=== PATIENT | male | born 1975 | race Two or more races ===

== ENCOUNTER 2024-01-17 12:37 | Inpatient (IN) | payer OTHER ==
[~2024-01-17] VITALS: Ht 167.6 cm; Wt 83.1 kg
[~2024-01-17 12:37] MED LIST: CARV3.1240 PO; FURO40TA4 PO; TRAM50TA2 PO
[2024-01-17 13:00] VITALS: PULSE 90; RESP 22; O2SAT 100
--- NOTE | 2024-01-17 13:06 | ECG ---
[facility] Test Date: 2024-01-17 Test Time: 13:05:26 Pat Name: MARTINA STONE Department: ED Room: 0290T Gender: M [employer]: : 1975 Requested By: SMITH HOOPER Order Number: [id number] Reading MD: Danny Vaca Measurements Intervals [place] Rate: 86 P: 79 OH: 196 QRS: 65 QRSD: 125 T: 61 QT: 444 QTc: 531 Interpretive Statements Sinus rhythm Ventricular premature complex Left atrial enlargement LVH with secondary repolarization abnormality Prolonged QT interval Electronically Signed On 01-22-2024 17:01:13 PST by Danny Vaca Please click the below link to view image of tracing.
[2024-01-17] MEDS: SODIUM CHLORIDE 0.9% 1,000 ML IV ONE (13:08)
[2024-01-17 13:52] LABS: Basophils # (auto) 0 10 ^3/uL (0-0.2); Basophils % (auto) 0.4 % (0.0-2.0); Eosinophils # (auto) 0 10 ^3/uL (0-0.8); Eosinophils % (auto) 0.1 % (0.0-7.0); Lymphocytes # (auto) 0.5 10 ^3/uL (0.4-5.4); Monocytes # (auto) 0.5 10 ^3/uL (0-1.3); Nucleated Red Blood Cells % 0.1 %; White Blood Cell 8.2 10^3/uL (4.4-10.8)
[2024-01-17 13:55] LABS: Hemoglobin 14.6 g/dL (13.5-17.5); Lymphocytes % (auto) 5.5 % (10.0-50.0); Mean Corpuscular Volume 105.7 fL (80.0-100.0); Monocytes % (auto) 6.5 % (0.0-12.0); Neutrophils # (auto) 7.2 10 ^3/uL (1.6-8.6); Neutrophils % (auto) 87.5 % (37.0-80.0); Platelet Count (auto) 100 10^3/uL (140-450); Red Blood Cells 4.07 10^6/uL (4.5-5.90); Red Cell Distribution Width 13.7 % (11.8-14.3)
[2024-01-17 14:06] LABS: Chloride 105 mmol/L (98-107); Sodium 144 mmol/L (136-145)
[2024-01-17 14:07] LABS: Calcium 9.7 mg/dL (8.7-10.4); Carbon Dioxide 25 mmol/L (20-31)
[2024-01-17 14:12] LABS: Blood Alcohol < 3.0 mg/dL (<10); Glucose 102 mg/dL (74-106)
--- NOTE | 2024-01-17 14:35 | DVH ---
EXAM: CT CERVICAL WITHOUT CONTRAST INDICATION: aloc EXAM DATE: 01/17/2024 01:57 PM COMPARISON: None TECHNIQUE: Multiple axial CT images of the cervical spine were obtained using bone algorithm. Axial a nd coronal reformatting was done. Bone and soft tissue windows were reviewed. Radiation Dose Information: CT Dose: CTDI volume is 20 mGy. Dose-length product is 1967 mGy*cm FINDINGS: The cervical alignment is intact. No acute cervical spine fracture is identified. The vertebral body heights are intact. No suspicious osseous lesions are identified. Moderate degenerative changes throughout the cervical spine, most prominent at C5-C6 and C6-C7. There is no prevertebral soft tissue swelling. IMPRESSION: 1. No evidence of acute cervical spine fracture or traumatic malalignment. 2. Moderate degenerative changes throughout the cervical spine, most prominent at C5-C6 and C6-C7. 3. All CT scans at this medical facility are performed using dose modulation techniques as appropriat e to a performed exam including the following: Automated exposure control was utilized; adjustment of the MA and/or KV according to patient size; and use of iterative reconstruction technique.
--- NOTE | 2024-01-17 14:36 | DVH ---
EXAM: CT HEAD WITHOUT CONTRAST INDICATION: aloc TECHNIQUE: CT of the head without intravenous contrast. Radiation Dose Information: CT Dose: CTDI volume is 78.55 mGy. Dose-length product is 1967.36 mGy*cm The dose indicators for CT are the volume Computed Tomography (CT) Dose Index (CTDIvol) and the Dose Length Product (DLP), and are measured in units of mGy and mGy-cm, respectively. These indicators are not patient dose, but values generated from the CT scanner acquisition factors. The report includes radiation exposure data for exposures received during this examination. COMPARISON: None FINDINGS: There is no evidence of acute intracranial hemorrhage, extra-axial collection, mass effect, midline s hift, herniation or hydrocephalus. The ventricles, sulci and cisterns are age appropriate. The us-white differentiation is intact. Patchy periventricular and subcortical white matter hypoattenuation is nonspecific but may be related to small vessel ischemic disease. The visualized paranasal sinuses and mastoid air cells are clear. The surrounding soft tissues and osseous structures are unremarkable. IMPRESSION: 1. No intracranial hemorrhage. 2. Endotracheal tube in place 3. No CT findings of depressed skull fracture
--- NOTE | 2024-01-17 14:44 | ED.PDOC ---
Altered Mental Status HPI Comments 48Y M with PMHx pacemaker presents to ED via EMS for chief complaint ALOC. 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 Upon ED arrival, pt is nonverbal and only withdraws to deep pain. Pt is shivering. Pt was given Narcan by EMS but there was no effect on the patient. Unknown history but pt has pacemaker in place. Chief Complaint: ALOC Time Seen by MD: 14:30 Reviewed Notes: Medications, Allergies Allergies: Coded Allergies: NO KNOWN ALLERGIES (Unverified , 01/17/24) Information Source: Emergency Med Personnel, [facility] Medical Record Mode of Arrival: EMS Brought in by: EMS Severity: Severe Timing: Hours Duration: Since onset Prehospital treatment: Oxygen, Other Quality: Decreased Alertness Recent: None History of: None Associated Signs and Symptoms: Other Past Medical History PAST MEDICAL HISTORY: Unknown Surgical History (Other): Pacemaker or ICD insertion Family History Family History: Unknown Social History Smoker: Unknown Alcohol: Unknown Drugs: Unknown Lives In: Unknown Unable to Obtain due to: Altered Mental Status Physical Exam General Appearance: No Apparent Distress, Other (Somnolent) HEENT: PERRL/EOMI (A), Other (Dry mucous membranes) Neck: Full Range of Motion, Normal Inspection, Supple Respiratory: Lungs Clear, No Accessory Muscle Use, No Respiratory Distress, Normal Breath Sounds Cardiovascular: No Edema, No JVD, Regular Rate/Rhythm Breast Exam: Deferred Gastrointestinal: Non Tender, Soft Genitalia: Deferred Pelvic: Deferred Rectal: Deferred Extremities: Normal inspection, Normal range of motion, Non-tender, No pedal edema Neurologic: Other (Somnolent, opens eyes to painful stimulus, does not verbalize or follow commands, does move all extremities, no facial asymmetry) Cerebellar Function: Unable to Test Reflexes: NOT DONE Skin: Dry, Pallor, Other (Cool to the touch) Lymphatic: NOT DONE EKG EKG : Comments Sinus rhythm, rate 86, normal GA interval, QRS slightly prolonged at 125, QTC prolonged at 531, normal axis, LVH with secondary repolarization abnormality, lateral ST depression Was a procedure done? Was a procedure done?: No Differential Diagnosis (ALOC) Differential Diagnosis: Dehydration, Hypoglycemia, Encephalopathy, Sepsis, Seizure, Closed Head Injury, CVA, Mass Lesion, SAH, Drug Overdose, ETOH Intoxication, Heart Failure, Other (PR, among others) X-Ray, Labs, Meds, VS Vital Signs Date Time Temp Pulse Resp B/P (MAP) Pulse Ox O2 Delivery O2 Flow Rate FiO2 01/17/24 17:43 96 01/17/24 16:00 95 14 111/80 (90) 95 01/17/24 15:00 94 14 113/81 (92) 99 01/17/24 14:00 93 16 110/87 (95) 98 01/17/24 13:19 90 01/17/24 13:05 86 01/17/24 13:00 90 22 100 Non-Rebreather 15 N/A 01/17/24 13:00 94.1 90 22 96/71 (79) 100 94.1 01/17/24 12:40 96.2 86 16 95/74 (81) 100 Lab Test 01/17/24 15:39 01/17/24 13:42 Range/Units Troponin I High Sensitivity 943 *H 435 *H </=54 ng/L White Blood Count 8.2 4.4-10.8 10^3/uL Red Blood Count 4.07 L 4.5-5.90 10^6/uL Hemoglobin 14.6 13.5-17.5 g/dL Hematocrit 43.0 41.0-53.0 % Mean Corpuscular Volume 105.7 H 80.0-100.0 fL Mean Corpuscular Hemoglobin 36.0 H 28.0-32.0 pg Mean Corpuscular Hemoglobin Concent 34.0 32.0-36.0 g/dL Red Cell Distribution Width 13.7 11.8-14.3 % Platelet Count 100 L 140-450 10^3/uL Mean Platelet Volume 10.8 6.9-10.8 fL Neutrophils (%) (Auto) 87.5 H 37.0-80.0 % Lymphocytes (%) (Auto) 5.5 L 10.0-50.0 % Monocytes (%) (Auto) 6.5 0.0-12.0 % Eosinophils (%) (Auto) 0.1 0.0-7.0 % Basophils (%) (Auto) 0.4 0.0-2.0 % Neutrophils # (Auto) 7.2 1.6-8.6 10 ^3/uL Lymphocytes # (Auto) 0.5 0.4-5.4 10 ^3/uL Monocytes # (Auto) 0.5 0-1.3 10 ^3/uL Eosinophils # (Auto) 0 0-0.8 10 ^3/uL Basophils # (Auto) 0 0-0.2 10 ^3/uL Nucleated Red Blood Cells 0.1 % Sodium Level 144 136-145 mmol/L Potassium Level 5.0 3.5-5.1 mmol/L Chloride Level 105 98-107 mmol/L Carbon Dioxide Level 25 20-31 mmol/L Anion Gap 14 5-15 Blood Urea Nitrogen 20 9-23 mg/dL Creatinine 1.44 H 0.700-1.30 mg/dL Glomerular Filtration Rate Calc 61 >90 mL/min BUN/Creatinine Ratio 13.9 10.0-20.0 Serum Glucose 102 74-106 mg/dL Calcium Level 9.7 8.7-10.4 mg/dL Plasma/Serum Blood Alcohol < 3.0 <10 mg/dL Current Medications Medications (Trade) Dose Ordered Sig/Ady Route Start Time Stop Time Status Last Admin Sodium Chloride 1,000 ml @ 1,000 mls/hr Q1H ONCE IV 01/17/24 13:00 01/17/24 13:59 DC 01/17/24 13:08 PROCEDURE(s): HWOCT - HEAD WITHOUT CONTRAST REASON: aloc ORDER NUMBER(s): [id number], ACCESSION NUMBER(s): [id number] EXAM: CT HEAD WITHOUT CONTRAST INDICATION: aloc TECHNIQUE: CT of the head without intravenous contrast. Radiation Dose Information: CT Dose: CTDI volume is 78.55 mGy. Dose-length product is 1967.36 mGy*cm The dose indicators for CT are the volume Computed Tomography (CT) Dose Index (CTDIvol) and the Dose Length Product (DLP), and are measured in units of mGy and mGy-cm, respectively. These indicators are not patient dose, but values generated from the CT scanner acquisition factors. The report includes radiation exposure data for exposures received during this examination. COMPARISON: None FINDINGS: There is no evidence of acute intracranial hemorrhage, extra-axial collection, mass effect, midline shift, herniation or hydrocephalus. The ventricles, sulci and cisterns are age appropriate. The us-white differentiation is intact. Patchy periventricular and subcortical white matter hypoattenuation is nonspecific but may be related to small vessel ischemic disease. The visualized paranasal sinuses and mastoid air cells are clear. The surrounding soft tissues and osseous structures are unremarkable. IMPRESSION: 1. No intracranial hemorrhage. 2. Endotracheal tube in place 3. No CT findings of depressed skull fracture EDURE(s): CS2 - CERVICAL WITHOUT CONTRAST REASON: al ORDER NUMBER(s): [id number], ACCESSION NUMBER(s): [id number] EXAM: CT CERVICAL WITHOUT CONTRAST INDICATION: aloc EXAM DATE: 01/17/2024 01:57 PM COMPARISON: None TECHNIQUE: Multiple axial CT images of the cervical spine were obtained using bone algorithm. Axial and coronal reformatting was done. Bone and soft tissue windows were reviewed. Radiation Dose Information: CT Dose: CTDI volume is 20 mGy. Dose-length product is 1967 mGy*cm FINDINGS: The cervical alignment is intact. No acute cervical spine fracture is id entified. The vertebral body heights are intact. No suspicious osseous lesions are identified. Moderate degenerative changes throughout the cervical spine, most prominent at C5-C6 and C6-C7. There is no prevertebral soft tissue swelling. IMPRESSION: 1. No evidence of acute cervical spine fracture or traumatic malalignment. 2. Moderate degenerative changes throughout the cervical spine, most prominent at C5-C6 and C6-C7. 3. All CT scans at this medical facility are performed using dose modulation que hniques as appropriate to a performed exam including the following: Automated exposure control was utilized; adjustment of the MA and/or KV according to patient size; and use of iterative reconstruction technique. X-Ray, Labs, Meds, VS Comment 48-year-old male with unknown past medical history brought in by EMS after being found with altered mental status. Vitals remarkable for hypothermia Exam remarkable for somnolence, moves all extremities, does not follow commands or answer questions EKG sinus rhythm, lateral ST depression Head CT unremarkable CT C-spine unremarkable Chest x-ray unremarkable CBC, basic metabolic panel and serum alcohol level remarkable for creatinine 1.44, no other abnormalities of acute significance Serial troponins 435 and 943 BNP, UA, urine drug screen pending Patient treated with the following in the ED: 1 L 0.9 normal saline IV bolus, aspirin 325 mg p.o., nitro Dur 1/2 inch to chest wall Plan is to admit the patient for Cardiology and Neurology evaluation Time of 1ST Reevaluation: 15:00 Reevaluation 1ST: Unchanged Time of 2ND Reevaluation: 18:03 Reevaluation 2ND: Unchanged Patient Education/Counseling: Pt Unresponsive Family Education/Counseling: No Family Present Departure 1 Departure Time of Disposition: 18:03 Impression: Primary Impression: Non-STEMI (non-ST elevated myocardial infarction) Additional Impression: Encephalopathy Qualified Codes: G93.40 - Encephalopathy, unspecified Disposition: ADMITTED INPATIENT Admit to: [facility] Condition: Serious Critical Care Note Critical Care Time?: Yes (35 min-critical care time only) Critical care comment: Critical care time including multiple bedside re-evaluations, review of laboratory and imaging studies, and discussion of the case with the admitting provider. Patient is high risk for neurologic and/or hemodynamic decompensation. Stability Stability form required: No Heart Score Heart Score: Heart Score Response (Comments) Value History N/A 0 EKG N/A 0 Age N/A 0 Risk Factors N/A 0 Troponin N/A 0 Total 0 I personally scribed for SMITH ROBERT MD ([facility]) on 01/17/24 at 14:44. Electronically submitted by Karla Rich ([employer]). I personally scribed for SMITH ROBERT MD ([facility]) on 01/17/24 at 14:51. Electronically submitted by Karla Rich ([employer]). SMITH ROBERT MD Jan 17, 2024 14:44
[2024-01-17 14:57] LABS: Anion Gap 14 (5-15); BUN/Creatinine Ratio 13.9 (10.0-20.0); Blood Urea Nitrogen 20 mg/dL (9-23)
[2024-01-17] MEDS: ASPirin 325 MG TAB PO ONE (18:15)
[2024-01-17] MEDS: NITROGLYCERIN 2% OINT 1GM PKG TD ONE (18:22)
[2024-01-17 19:25] VITALS: PULSE 98; RESP 31; O2SAT 96
[2024-01-17 21:07] LABS: Urine Bacteria None Seen /hpf (None Seen)
[2024-01-17] MEDS ORDERED: MORPHINE SULFATE INJ 2 MG/ml SYRG IV PRN (21:15)
[2024-01-17] MEDS: ENOXAPARIN SOD 100 MG/1 ML SYRINGE SC ONE (21:15)
[2024-01-17] MEDS ORDERED: NITROGLYCERIN 0.4 MG SL TAB SL PRN (21:15)
[2024-01-17] MEDS ORDERED: ACETAMINOPHEN 325 MG TAB PO PRN (21:15)
[2024-01-17 21:25] LABS: Urine Blood 3+ /uL (Negative); Urine Clarity Turbid (Clear); Urine Color Light-Orange (Yellow); Urine Mucus FEW (None Seen); Urine Protein, UAD 2+ (Negative); Urine Specific Gravity 1.018 (1.001-1.035); Urine Urobilinogen Normal (Negative); Urine WBC 2 /hpf (0 - 3); Urine pH 5.5 (5.0-9.0)
[2024-01-17 21:30] LABS: Amphetamine Screen, Urine Neg (NEGATIVE); Barbiturate Scree,Urine Neg (NEGATIVE); Benzodiazephine Screen, Urine Neg (NEGATIVE); Cannabinoid Screen, Urine Neg (NEGATIVE); Cocaine Screen, Urine Neg (NEGATIVE); Opiate Scree,Urine Neg (NEGATIVE); Phencyclidine Screen, Urine Neg (NEGATIVE)
[2024-01-17] MEDS ORDERED: ENOXAPARIN SOD 100 MG/1 ML SYRINGE SC ONE (21:45)
--- NOTE | 2024-01-17 22:17 | DVH ---
EXAM: XY CHEST XRAY 1 VIEW CLINICAL HISTORY: sob, chf TECHNIQUE: Single AP view of the chest WID: COMPARISON: None FINDINGS: Lines and tubes: There is a left-sided single lead pacemaker with the tip projecting over the right v entricle. Chest: Cardiomegaly with mild central pulmonary vascular congestion. No pleural effusion, pneumothorax, or consolidation. The osseous structures are grossly intact. IMPRESSION: Mild cardiomegaly with very mild central pulmonary vascular congestion
[2024-01-17] MEDS: CARVEDILOL 3.125 MG TAB PO SCH (22:38)
[2024-01-17] MEDS: ATORVASTATIN 20 MG TAB PO SCH (22:38)
[2024-01-17 22:55] LABS: Lactic Acid w/Reflex 2.5 mmol/L (0.4-2.0)
[2024-01-17] MEDS: FUROSEMIDE 40 MG/4 ML VIAL IV ONE (23:50)
[2024-01-18] MEDS: TEMAZEPAM 15 MG CAP PO PRN (03:46)
[2024-01-18 04:12] LABS: Eosinophils # (auto) 0 10 ^3/uL (0-0.8); Hemoglobin 15.3 g/dL (13.5-17.5); Lymphocytes # (auto) 0.5 10 ^3/uL (0.4-5.4); Monocytes # (auto) 0.9 10 ^3/uL (0-1.3)
[2024-01-18 04:31] LABS: Calcium 9.2 mg/dL (8.7-10.4); Chloride 107 mmol/L (98-107); Potassium 4.8 mmol/L (3.5-5.1); Sodium 142 mmol/L (136-145)
[2024-01-18 04:32] LABS: Anion Gap 15 (5-15); Carbon Dioxide 20 mmol/L (20-31)
[2024-01-18 04:33] LABS: Basophils # (auto) 0.1 10 ^3/uL (0-0.2); Basophils % (auto) 0.4 % (0.0-2.0); Hematocrit 46.1 % (41.0-53.0); Lymphocytes % (auto) 3.3 % (10.0-50.0); Mean Corpuscular Hemoglobin 34.9 pg (28.0-32.0); Mean Corpuscular Hgb Conc. 33.3 g/dL (32.0-36.0); Mean Corpuscular Volume 105.1 fL (80.0-100.0); Monocytes % (auto) 6.2 % (0.0-12.0); Neutrophils # (auto) 13.3 10 ^3/uL (1.6-8.6); Neutrophils % (auto) 90.1 % (37.0-80.0); Platelet Count (auto) 85 10^3/uL (140-450); Red Blood Cells 4.39 10^6/uL (4.5-5.90); Red Cell Distribution Width 13.9 % (11.8-14.3); White Blood Cell 14.7 10^3/uL (4.4-10.8)
[2024-01-18 04:37] LABS: BUN/Creatinine Ratio 11.5 (10.0-20.0); Glucose 111 mg/dL (74-106)
[2024-01-18 04:42] LABS: Blood Urea Nitrogen 30 mg/dL (9-23)
--- NOTE | 2024-01-18 05:30 | DVHHP2 ---
History of Present Illness Reason for Visit: Altered mental status History of Present Illness 48-year-old presents for evaluation of altered mental status. 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 Patient was found confused and nonverbal. Patient currently lethargic and mumbles words. Denies chest pain or shortness for breath. Past Medical History Congestive heart failure, hypertension Past Surgical History Pacemaker Family History Noncontributory Smoke: No ALCOHOL: heavy Drugs: None Lives: Alone Review of Systems Review of Systems Review of systems are limited due to the patient's altered mental status. Allergies: Coded Allergies: NO KNOWN ALLERGIES (Unverified , 01/17/24) Medications Current Medications Medications Dose Ordered Sig/Ady Route Start Time Stop Time Status Last Admin Dose Admin Aspirin 162 mg DAILY PO 01/18/24 10:00 Atorvastatin Calcium 10 mg HS PO 01/17/24 22:00 01/17/24 22:38 10 MG Furosemide 20 mg BIDD IV 01/18/24 06:00 Carvedilol 3.125 mg Q12HR PO 01/17/24 22:00 01/17/24 22:38 3.125 MG Temazepam 15 mg QHSP PRN PO 01/17/24 21:15 01/18/24 03:46 15 MG Ondansetron HCl 4 mg Q4HP PRN IV 01/17/24 21:15 Enoxaparin Sodium 40 mg DAILY SC 01/18/24 10:00 UNV Acetaminophen 650 mg Q6HP PRN PO 01/17/24 21:15 Nitroglycerin 0.4 mg Q5MINP PRN SL 01/17/24 21:15 Morphine Sulfate 2 mg Q30M PRN IV 01/17/24 21:15 Exam Vital Signs Vital Signs Date Time Temp Pulse Resp B/P (MAP) Pulse Ox O2 Delivery O2 Flow Rate FiO2 01/18/24 04:00 80 01/18/24 04:00 114/83 (93) 99 01/18/24 02:00 27 01/17/24 19:25 97.9 97.9 01/17/24 19:25 Nasal Cannula* 3 32 Exam Gen: 48-year-old male in mild distress, lethargic Skin: Warm, dry, normal color and texture, no rash. HEENT: Normocephalic atraumatic, mucous membranes moist and pink. Neck: Cervical and supraclavicular nodes normal without enlargement, trachea is midline, thyroid gland is normal without masses. Pulmonary: Clear to auscultation and percussion bilaterally. Cardiac: Regular rate and rhythm. No murmur Abdomen: Soft, nontender, nondistended, bowel sounds present all 4 quadrants, no guarding, no rigidity, no organomegaly. Extremities: No cyanosis, clubbing, no edema Neuro: Cranial nerves II through XII grossly intact, normal affect and speech, no focal motor deficits. Labs/Xrays ORDERING PHYSICIAN: SMITH ROBERT MD PROCEDURE(s): HWOCT - HEAD WITHOUT CONTRAST REASON: aloc ORDER NUMBER(s): [id number], ACCESSION NUMBER(s): [id number] EXAM: CT HEAD WITHOUT CONTRAST INDICATION: aloc TECHNIQUE: CT of the head without intravenous contrast. Radiation Dose Information: CT Dose: CTDI volume is 78.55 mGy. Dose-length product is 1967.36 mGy*cm The dose indicators for CT are the volume Computed Tomography (CT) Dose Index (CTDIvol) and the Dose Length Product (DLP), and are measured in units of mGy and mGy-cm, respectively. These indicators are not patient dose, but values generated from the CT scanner acquisition factors. The report includes radiation exposure data for exposures received during this examination. COMPARISON: None FINDINGS: There is no evidence of acute intracranial hemorrhage, extra-axial collection, mass effect, midline shift, herniation or hydrocephalus. The ventricles, sulci and cisterns are age appropriate. The us-white differentiation is intact. Patchy periventricular and subcortical white matter hypoattenuation is nonspecific but may be related to small vessel ischemic disease. The visualized paranasal sinuses and mastoid air cells are clear. The surrounding soft tissues and osseous structures are unremarkable. IMPRESSION: 1. No intracranial hemorrhage. 2. Endotracheal tube in place 3. No CT findings of depressed skull fracture RING PHYSICIAN: ANSHUL PACECNJason PROCEDURE(s): CXR1 - CHEST XRAY 1 VIEW REASON: sob, chf ORDER NUMBER(s): [id number], ACCESSION NUMBER(s): [id number] EXAM: XY CHEST XRAY 1 VIEW CLINICAL HISTORY: sob, chf TECHNIQUE: Single AP view of the chest WID: COMPARISON: None FINDINGS: Lines and tubes: There is a left-sided single lead pacemaker with the tip projecting over the right ventricle. Chest: Cardiomegaly with mild central pulmonary vascular congestion. No pleural effusion, pneumothorax, or consolidation. The osseous structures are grossly intact. IMPRESSION: Mild cardiomegaly with very mild central pulmonary vascular congestion ATED BY: GUY LEÓN MD DICTATED DATE/TIME: 01/17/246 Labs Test 01/18/24 03:55 01/17/24 23:40 01/17/24 21:37 01/17/24 20:52 Range/Units White Blood Count 14.7 #H 4.4-10.8 10^3/uL Red Blood Count 4.39 L 4.5-5.90 10^6/uL Hemoglobin 15.3 13.5-17.5 g/dL Hematocrit 46.1 41.0-53.0 % Mean Corpuscular Volume 105.1 H 80.0-100.0 fL Mean Corpuscular Hemoglobin 34.9 H 28.0-32.0 pg Mean Corpuscular Hemoglobin Concent 33.3 32.0-36.0 g/dL Red Cell Distribution Width 13.9 11.8-14.3 % Platelet Count 85 L 140-450 10^3/uL Mean Platelet Volume 11.4 H 6.9-10.8 fL Neutrophils (%) (Auto) 90.1 H 37.0-80.0 % Lymphocytes (%) (Auto) 3.3 L 10.0-50.0 % Monocytes (%) (Auto) 6.2 0.0-12.0 % Eosinophils (%) (Auto) 0.0 0.0-7.0 % Basophils (%) (Auto) 0.4 0.0-2.0 % Neutrophils # (Auto) 13.3 H 1.6-8.6 10 ^3/uL Lymphocytes # (Auto) 0.5 0.4-5.4 10 ^3/uL Monocytes # (Auto) 0.9 0-1.3 10 ^3/uL Eosinophils # (Auto) 0 0-0.8 10 ^3/uL Basophils # (Auto) 0.1 0-0.2 10 ^3/uL Nucleated Red Blood Cells 0.0 % Sodium Level 142 136-145 mmol/L Potassium Level 4.8 3.5-5.1 mmol/L Chloride Level 107 98-107 mmol/L Carbon Dioxide Level 20 20-31 mmol/L Anion Gap 15 5-15 Blood Urea Nitrogen 30 #H 9-23 mg/dL Creatinine 2.62 H 0.700-1.30 mg/dL Glomerular Filtration Rate Calc 30 >90 mL/min BUN/Creatinine Ratio 11.5 10.0-20.0 Serum Glucose 111 H 74-106 mg/dL Calcium Level 9.2 8.7-10.4 mg/dL Lactic Acid Level 2.0 0.4-2.0 mmol/L Blood Gas Specimen Type Arterial Blood Gas Sample Site Right radial Blood Gas Patient Temperature 37.0 Arterial Blood Date Drawn [id number] Arterial Blood pH 7.494 H 7.350-7.450 Arterial Blood Partial Pressure CO2 25.7 L 35.0-48.0 mmHg Arterial Blood Partial Pressure O2 84.3 83.0-108.0 mmHg Arterial Blood HCO3 19.3 L 21.0-28.0 mmol/L Arterial Blood Oxygen Saturation 96.7 94.0-98.0 % Arterial Blood Base Excess -2.0 -2.0-3.0 mmol/L Arterial Blood Oxyhemoglobin 90.7 L 94.0-98.0 % Arterial Blood Carboxyhemoglobin 5.9 H 0.5-1.5 % Arterial Blood Methemoglobin 0.3 0.0-1.5 % Jame Test Yes Blood Gas Total Hemoglobin 15.80 13.5-17.5 g/dL Blood Gas Liter Flow 2.00 Blood Gas Modality Nasal cannula Blood Gas Spontaneous Rate 28 FiO2 % 28.0 Urine Color Light-orange Yellow Urine Clarity Turbid H Clear Urine pH 5.5 5.0-9.0 Urine Specific [place] 1.018 1.001-1.035 Urine Protein 2+ H Negative Urine Ketones Trace Negative Urine Blood 3+ H Negative /uL Urine Nitrite Negative Negative Urine Bilirubin Negative Negative Urine Urobilinogen Normal Negative mg/dL Urine Leukocyte Esterase Negative Negative /uL Urine RBC <1 0 - 3 /hpf Urine WBC 2 0 - 3 /hpf Urine Squamous Epithelial Cells None seen <5 /hpf Urine Bacteria None seen None Seen /hpf Urine Mucus Few None Seen Urine Glucose Normal Normal mg/dL Urine Opiates Screen Neg NEGATIVE Urine Fentanyl Screen Neg NEGATIVE Urine Barbiturates Screen Neg NEGATIVE Urine Phencyclidine Screen Neg NEGATIVE Urine Amphetamines Screen Neg NEGATIVE Urine Benzodiazepines Screen Neg NEGATIVE Urine Cocaine Screen Neg NEGATIVE Urine Cannabinoids Screen Neg NEGATIVE Test 01/17/24 15:39 01/17/24 13:42 Range/Units Troponin I High Sensitivity 943 *H </=54 ng/L B-Type Natriuretic Peptide 2677.09 0-100 pg/mL Plasma/Serum Blood Alcohol < 3.0 <10 mg/dL Assessment/Plan Assessment/Plan Acute encephalopathy NSTEMI Congestive heart failure Acute kidney injury Plan Admit the patient to [facility] to the hospitalist Cardiology consultation Resume home medications Rocephin CMP/CK pending Continue treatment per orders. Plan discussed with: Other My Orders Orders - ANSHUL PACE Procedure Category Date Status Time Chest Xray 1 View XY 01/17/24 Resulted 21:12 Abg W/ Co-Ox RT 01/17/24 Logged 21:12 Aspirin Tablet PHA 01/18/24 In Process 10:00 Atorvastatin (Lipitor) PHA 01/17/24 In Process 22:00 Furosemide Injection PHA 01/18/24 In Process (Lasix Injection) 06:00 Carvedilol Tablet PHA 01/17/24 In Process (Coreg Tablet) 22:00 * Cardiology Consult CONS 01/17/24 Transmitted 21:12 Admit ADMIT 01/17/24 Transmitted 21:12 Temazepam (Restoril) PHA 01/17/24 In Process 21:15 Ondansetron Hcl PHA 01/17/24 In Process (Zofran) 21:15 Enoxaparin Sodium PHA 01/18/24 Pending (Lovenox) 10:00 Cardiac DIET 01/18/24 Transmitted Diet-2gna,Lofat,Lochol Breakfast Echo 2d Mode Cardiac US 01/17/24 Logged DOP 21:12 Condition: Serious [facility] 01/17/24 In Process 21:12 Acetaminophen Tablet PHA 01/17/24 In Process (Tylenol Tablet) 21:15 Bedrest With Bathroom [facility] 01/17/24 In Process Privileg 21:12 Nitroglycerin PHA 01/17/24 In Process Sublingual (Ntrostat 21:15 Morphine Sulfate PHA 01/17/24 In Process Injection 21:15 Stat Ekg For Chest [facility] 01/17/24 In Process Pain 21:12 Notify Md Of Changes [facility] 01/17/24 In Process From Base 21:12 Glove Operator For [facility] 01/17/24 In Process 24 Hours 21:12 Emergency Dysrhythmia [facility] 01/17/24 In Process Protocol 21:12 Rhythm Strips Once [facility] 01/17/24 In Process Every Shift 21:12 Oxygen By Nasal RT 01/17/24 Transmitted Cannula 21:12 Enoxaparin Sodium [facility] 01/17/24 Pending (Lovenox) 21:45 Transfer Orders XFER 01/17/24 Transmitted 23:19 Ceftriaxone Ivpb PHA 01/18/24 Transmitted Rocephin 09:00 Date of Service: Jan 17, 2024 Billing Provider: ANSHUL PACE Common Visit Codes: [id number] CARE 30-74 MIN ANSHUL PACE Jan 18, 2024 05:30
[2024-01-18] MEDS: FUROSEMIDE 20 MG/2 ML VIAL IV SCH (06:00)
[2024-01-18 06:15] LABS: Albumin 4.1 g/dL (3.2-4.8); Bilirubin, Direct 0.4 mg/dL (<0.3); Total Protein 7.3 g/dL (5.7-8.2)
[2024-01-18 08:00] VITALS: PULSE 81
[2024-01-18] MEDS: ASPirin 81 mg TAB PO SCH (09:47)
[2024-01-18] MEDS: cefTRIAXone 1GM/50ML D5W 50 ML IV SCH (09:47)
[2024-01-18] MEDS ORDERED: ENOXAPARIN SOD 40 MG/0.4 ML SYRINGE SC SCH (10:00)
--- NOTE | 2024-01-18 11:11 | DVHINCON2 ---
Date Seen: Jan 18, 2024 Referring Physician MIGUEL Schulte Reason for Consultation CHF History of Present Illness This is a Romansh-speaking mostly 48-year-old male who presented to the emergency room via EMS with a chief complaint of ALOC. At time of assessment, the patient was found A&O x 2. Information obtained from records and primary RN. 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 St ates he lives within this area with his friend. Reports undergoing an automatic implantable cardioverted defibrillator procedure in the [facility] approximately a year ago. He underwent a 12-lead electrocardiogram revealing a sinus rhythm with intermittent premature ventricular contractions and a prolonged QTC at 531 ms. Transthoracic echocardiogram at bedside reveals a dilated cardiomyopathy with poor left ventricular ejection fraction. Significant medical history includes unspecified dilated cardiomyopathy, congestive heart failure, status post single-lead AICD placement ([facility]) in 2022, and alcohol use including daily beer consumption. Past Medical History Past medical history reviewed. No other significant than mentioned above. Past Surgical History Status post single-lead AICD placement ([facility]) in 2022 Family History Unable to obtain family history at this time. Social History Admits to daily alcohol consumption, three beers per day. Denies use of illicit drugs or tobacco. Allergies: Coded Allergies: NO KNOWN ALLERGIES (Unverified , 01/17/24) Home Meds Home medications reviewed. Current Medications Current Medications Medications (Trade) Dose Ordered Sig/Ady Route PRN Reason Start Time Stop Time Status Last Admin Aspirin 162 mg DAILY PO 01/18/24 10:00 01/18/24 09:47 Atorvastatin Calcium (Lipitor) 10 mg HS PO 01/17/24 22:00 01/17/24 22:38 Furosemide (Lasix Injection) 20 mg BIDD IV 01/18/24 06:00 Carvedilol (Coreg Tablet) 3.125 mg Q12HR PO 01/17/24 22:00 01/18/24 09:48 Temazepam (Restoril) 15 mg QHSP PRN PO FOR INSOMNIA 01/17/24 21:15 01/18/24 03:46 Ondansetron HCl (Zofran) 4 mg Q4HP PRN IV NAUSEA / VOMITING 01/17/24 21:15 Enoxaparin Sodium (Lovenox) 40 mg DAILY SC 01/18/24 10:00 UNV Acetaminophen (Tylenol Tablet) 650 mg Q6HP PRN PO PAIN SCALE 1-3 OR TEMP>100.4 01/17/24 21:15 Nitroglycerin (Ntrostat Sublingual) 0.4 mg Q5MINP PRN SL FOR CHEST PAIN 01/17/24 21:15 Morphine Sulfate 2 mg Q30M PRN IV FOR CHEST PAIN 01/17/24 21:15 Ceftriaxone Sodium 50 ml @ 100 mls/hr DAILY@09 IV 01/18/24 09:00 01/18/24 09:47 Review of Systems Constitutional: No symptom reported Ears, Nose, & Throat: No symptom reported Eyes: No symptom reported Neurological: ALOC Pulmonary/Respiratory: No symptom reported Cardiovascular: No symptom reported Gastrointestinal: No symptom reported Genitourinary: No symptom reported Musculoskeletal: No symptom reported Skin: No symptom reported Psychiatric: No symptom reported Endocrine: No symptom reported Hemotologic/Lymphatic: No symptom reported Vital Signs Vital Signs Date Time Temp Pulse Resp B/P (MAP) Pulse Ox O2 Delivery O2 Flow Rate FiO2 01/18/24 09:48 88 124/90 01/18/24 05:37 Room Air* 0 21 01/18/24 04:00 99 01/18/24 02:00 27 01/17/24 19:25 97.9 97.9 Physical Exam General Appearance: ALOC. Unkept. Mild acute SOB Head Exam: Normal inspection Neck Exam: Normal inspection. Non-tender. Normal alignment Pulmonary/Respiratory: Chest non-tender. Crackles to bilateral breath sounds Cardiovascular/Chest: Regular rate and rhythm. S1, S2. SR with PVCs and QTC at 531 ms. Peripheral Pulses: 2+ Radial (R). 2+ Radial (L). 2+ Pedal (R). 2+ Pedal (L) Abdominal Exam: Normal bowel sounds. Soft. Nontender. No hepatospenomegaly. No masses Ankle Exam: Negative ankle edema Lower extremities: Negative lower extremity edema Urology: Testicular edema present Neuro/Mental Status: A&O x2. ALOC Thoughts/Psych: ALOC, poor historian Appearance: Mild acute distress Skin Exam: Normal inspection. Normal color. Warm. Dry Labs/Diagnostic Data Labs Test 01/18/24 03:55 01/17/24 23:40 01/17/24 21:37 01/17/24 20:52 Range/Units White Blood Count 14.7 #H 4.4-10.8 10^3/uL Red Blood Count 4.39 L 4.5-5.90 10^6/uL Hemoglobin 15.3 13.5-17.5 g/dL Hematocrit 46.1 41.0-53.0 % Mean Corpuscular Volume 105.1 H 80.0-100.0 fL Mean Corpuscular Hemoglobin 34.9 H 28.0-32.0 pg Mean Corpuscular Hemoglobin Concent 33.3 32.0-36.0 g/dL Red Cell Distribution Width 13.9 11.8-14.3 % Platelet Count 85 L 140-450 10^3/uL Mean Platelet Volume 11.4 H 6.9-10.8 fL Neutrophils (%) (Auto) 90.1 H 37.0-80.0 % Lymphocytes (%) (Auto) 3.3 L 10.0-50.0 % Monocytes (%) (Auto) 6.2 0.0-12.0 % Eosinophils (%) (Auto) 0.0 0.0-7.0 % Basophils (%) (Auto) 0.4 0.0-2.0 % Neutrophils # (Auto) 13.3 H 1.6-8.6 10 ^3/uL Lymphocytes # (Auto) 0.5 0.4-5.4 10 ^3/uL Monocytes # (Auto) 0.9 0-1.3 10 ^3/uL Eosinophils # (Auto) 0 0-0.8 10 ^3/uL Basophils # (Auto) 0.1 0-0.2 10 ^3/uL Nucleated Red Blood Cells 0.0 % Sodium Level 142 136-145 mmol/L Potassium Level 4.8 3.5-5.1 mmol/L Chloride Level 107 98-107 mmol/L Carbon Dioxide Level 20 20-31 mmol/L Anion Gap 15 5-15 Blood Urea Nitrogen 30 #H 9-23 mg/dL Creatinine 2.62 H 0.700-1.30 mg/dL Glomerular Filtration Rate Calc 30 >90 mL/min BUN/Creatinine Ratio 11.5 10.0-20.0 Serum Glucose 111 H 74-106 mg/dL Calcium Level 9.2 8.7-10.4 mg/dL Total Bilirubin 1.0 0.2-1.0 mg/dL Direct Bilirubin 0.4 H <0.3 mg/dL Aspartate Amino Transferase (AST) 1081 H 13-40 U/L Alanine Aminotransferase (ALT) 184 H 7-40 U/L Alkaline Phosphatase 52 46-116 U/L Creatine Kinase 73101 H 46-171 U/L Total Protein 7.3 5.7-8.2 g/dL Albumin 4.1 3.2-4.8 g/dL Lactic Acid Level 2.0 0.4-2.0 mmol/L Blood Gas Specimen Type Arterial Blood Gas Sample Site Right radial Blood Gas Patient Temperature 37.0 Arterial Blood Date Drawn [id number] Arterial Blood pH 7.494 H 7.350-7.450 Arterial Blood Partial Pressure CO2 25.7 L 35.0-48.0 mmHg Arterial Blood Partial Pressure O2 84.3 83.0-108.0 mmHg Arterial Blood HCO3 19.3 L 21.0-28.0 mmol/L Arterial Blood Oxygen Saturation 96.7 94.0-98.0 % Arterial Blood Base Excess -2.0 -2.0-3.0 mmol/L Arterial Blood Oxyhemoglobin 90.7 L 94.0-98.0 % Arterial Blood Carboxyhemoglobin 5.9 H 0.5-1.5 % Arterial Blood Methemoglobin 0.3 0.0-1.5 % Jame Test Yes Blood Gas Total Hemoglobin 15.80 13.5-17.5 g/dL Blood Gas Liter Flow 2.00 Blood Gas Modality Nasal cannula Blood Gas Spontaneous Rate 28 FiO2 % 28.0 Urine Color Light-orange Yellow Urine Clarity Turbid H Clear Urine pH 5.5 5.0-9.0 Urine Specific [place] 1.018 1.001-1.035 Urine Protein 2+ H Negative Urine Ketones Trace Negative Urine Blood 3+ H Negative /uL Urine Nitrite Negative Negative Urine Bilirubin Negative Negative Urine Urobilinogen Normal Negative mg/dL Urine Leukocyte Esterase Negative Negative /uL Urine RBC <1 0 - 3 /hpf Urine WBC 2 0 - 3 /hpf Urine Squamous Epithelial Cells None seen <5 /hpf Urine Bacteria None seen None Seen /hpf Urine Mucus Few None Seen Urine Glucose Normal Normal mg/dL Urine Opiates Screen Neg NEGATIVE Urine Fentanyl Screen Neg NEGATIVE Urine Barbiturates Screen Neg NEGATIVE Urine Phencyclidine Screen Neg NEGATIVE Urine Amphetamines Screen Neg NEGATIVE Urine Benzodiazepines Screen Neg NEGATIVE Urine Cocaine Screen Neg NEGATIVE Urine Cannabinoids Screen Neg NEGATIVE Test 01/17/24 15:39 01/17/24 13:42 Range/Units Troponin I High Sensitivity 943 *H </=54 ng/L B-Type Natriuretic Peptide 2677.09 0-100 pg/mL Plasma/Serum Blood Alcohol < 3.0 <10 mg/dL Assessment Acute on chronic decompensated HFrEF, NYHA Class IV Unspecified dilated cardiomyopathy with an EF of 10% Leukocytosis with questionable sepsis/rhabdomyolysis NSTEMI, likely type 2 secondary to above Presence of single-lead AICD ([facility] 2022) Acute kidney injury Thrombocytopenia Hematuria Elevated LFTs Alcoholism Plan/Recommendation We will continue the following plan/recommendations (Dr. Dangelo): * Echocardiogram to evaluate cardiac function * Preload and afterload reduction. Initiate dobutamine drip * Strict I&Os. Daily weight. Maintain fluid restriction * Initiate GDMT for CHF when appropriate * Hold given ROBERTO and inotropic agent ensuing * Discontinue therapeutic Lovenox given thrombocytopenia * Nephrology consult and recommendations * DVT/VTE prophylaxis: SCDs Thank you for allowing us to participate in this patient's care. Please call if you have any questions or concerns. This medical document was created using an electronic medical record system with voice recognition software and computerized dictation system. Although this document has been carefully reviewed, there might still be some phonetic and typographical errors. Occasional wrong-word or ``sound-alike substitutions may have occurred due to the inherent limitations of voice recognition software. These areas are purely typographical due to imperfections of the software programs and do not reflect any compromise in the patient's medical care. Please read the chart carefully and recognize, using context, where these substitutions have occurred. Plan discussed with: Patient, Other NYHA Physical activity limitations: Class4(Severe)discomfort (w any activit,symptoms at rest) Date of Service: Jan 18, 2024 Billing Provider: ELADIO DANGELO MD Cardiology Common Codes: 92628-IKCSLWP INP/OBS CARE (High) SLY VALLEJO [employer] AND DR[employer] INSPECTOR Jan 18, 2024 11:11
[2024-01-18 13:00] VITALS: BP 98/68; PULSE 78; RESP 20; TEMP 98.5; O2SAT 95
[2024-01-18 13:09] LABS: Phosphorus 4.2 mg/dL (2.4-5.1)
--- NOTE | 2024-01-18 13:15 | DVHSR ---
APPROVED REPORT EXAM: Two-dimensional and M-mode echocardiogram with Doppler and color Doppler. Blood Pressure: 136/69 mmHg INDICATION EF RISK FACTORS Height: 5'8", Weight: 180 DIMENSIONS LVDd7.6 (3.8-5.7cm)LA (2D)5.3 (1.9-4.0cm)Aortic Root3.4 (2.0-3.7cm) LVDs7.4 (2.5-4.0cm)LA (MM) (1.9-4.0cm)Aortic Cusp Exc2.1 (1.5-2.0cm) EF (%) 7.0 (55-70%)Rt. Atrium5.3 (1.9-4.0cm)Asc. Aorta cm IVSd0.8 (0.7-1.1cm)RV (D)4.9 (1.8-2.4cm) PWd1.0 (0.7-1.1cm) Mitral Valve MitralMitral Stenosis E/A ratio0.02D MVAcm2 Aortic Valve Aortic ValveAortic Stenosis V10.61m/Jony Mean GR.2mmHg V20.89m/Jony Peak GR.3mmHg LVOT Diameter2.4 (1.8-2.4cm)Doppler AVA3.10cm2 Pulmonic Valve V20.72m/s Tricuspid Valve TR Velocity2.48m/s [id number] Other Information Quality : Technically LimitedRhythm : Technically limited study due to body habitus and pt unable to turn on left side Conclusion Severely dilated left ventricle. Severely reduced left ventricular systolic function estimated eject ion fraction of 10%. In a global fashion. Severely reduced right ventricular systolic function. Moderately dilated right and left atria. Normal aortic valve structure and function. There is a moderate mitral valve regurgitation. There is [id number] tricuspid valve regurgitation. The pulmonary valve is grossly normal. No pericardial effusion.
--- NOTE | 2024-01-18 13:20 | DVHCONRES ---
Date Seen: Jan 18, 2024 Resident Creating Document: АНДРЕЙ HENRY RESIDENT Referring Physician Axel RIVERA Reason for Consultation ROBERTO History of Present Illness Patient is a 48-year-old male with past medical history of hypertension, presence of AICD brought to the hospital via EMS for chief complaint altered level of consciousness. 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 As per patient he did not recall how ended up in the hospital. Patient complaining of cough, denying any other symptoms including fever, chills, chest pain, shortness of breath, any other symptoms at this point. Patient is poor historian, not able to provide his medical history, what kind of medication he takes or any other information. Past Medical History Not able to obtain Past Surgical History Status post single lead AICD placement Family History: Patient reports no known family medical history. Family History Unable to obtain Social History Three beers per day, chronic alcohol consumption Former smoker, smoked for at least 10-12 years. Stopped three years ago. Patient denied use of illicit drug or tobacco. Allergies: Coded Allergies: NO KNOWN ALLERGIES (Unverified , 01/17/24) Allergies No known allergy Home Meds Reported Medications Tramadol Hcl (Tramadol Hcl) 50 Mg Tab, 1 TAB PO BID PRN for 5 Days, #10 01/18/24 Carvedilol (Carvedilol) 3.125 Mg Tab, 1 TAB PO BID for 30 Days, #60 01/18/24 Furosemide (Furosemide) 40 Mg Tab, 1 TAB PO DAILY for 30 Days, #30 01/18/24 Home Meds Based on drug prescription from permanent Furosemide, tramadol, carvedilol. Current Medications Current Medications Medications (Trade) Dose Ordered Sig/Ady Route PRN Reason Start Time Stop Time Status Last Admin Aspirin 162 mg DAILY PO 01/18/24 10:00 01/18/24 10:49 DC 01/18/24 09:47 Atorvastatin Calcium (Lipitor) 10 mg HS PO 01/17/24 22:00 01/18/24 10:49 DC 01/17/24 22:38 Furosemide (Lasix Injection) 20 mg BIDD IV 01/18/24 06:00 Carvedilol (Coreg Tablet) 3.125 mg Q12HR PO 01/17/24 22:00 01/18/24 10:49 DC 01/18/24 09:48 Temazepam (Restoril) 15 mg QHSP PRN PO FOR INSOMNIA 01/17/24 21:15 01/18/24 03:46 Ondansetron HCl (Zofran) 4 mg Q4HP PRN IV NAUSEA / VOMITING 01/17/24 21:15 Enoxaparin Sodium (Lovenox) 40 mg DAILY SC 01/18/24 10:00 01/18/24 10:49 DC Acetaminophen (Tylenol Tablet) 650 mg Q6HP PRN PO PAIN SCALE 1-3 OR TEMP>100.4 01/17/24 21:15 Nitroglycerin (Ntrostat Sublingual) 0.4 mg Q5MINP PRN SL FOR CHEST PAIN 01/17/24 21:15 Morphine Sulfate 2 mg Q30M PRN IV FOR CHEST PAIN 01/17/24 21:15 Ceftriaxone Sodium 50 ml @ 100 mls/hr DAILY@09 IV 01/18/24 09:00 01/18/24 09:47 Aspirin 81 mg DAILY PO 01/19/24 10:00 Dobutamine HCl/ Dextrose 250 ml @ 12.27 mls/ hr [id number] IV 01/18/24 11:00 Review of Systems Eyes: No Pain, No Vision change, No Conjunctivae inflammation, No Eyelid inflammation, No Other, No Redness ENT: No Ear pain, No Ear discharge, No Nose pain, No Nose discharge, No Nose congestion, No Mouth pain, No Mouth swelling, No Throat pain, No Throat swelling, No Other Cardiovascular: No Chest Pain, No Palpitations, No Orthopnea, No Paroxysmal Noc. Dyspnea, No Edema, No Lt Headedness, No Other Respiratory: Cough, No Dry, No Shortness of breath, No SOB with excertion, No Wheezing, No Hemoptysis, No Pleuritic Pain, No Sputum, No Other Gastrointestinal: No Nausea, No Vomiting, No Abdominal Pain, No Diarrhea, No Constipation, No Melena, No Hematochezia, No Other Genitourinary: No Dysuria, No Frequency, No Incontinence, No Hematuria, No Retention, No Other Musculoskeletal: No other, No neck pain, No shoulder pain, No arm pain, No back pain, No hand pain, No leg pain, No foot pain Skin: No Rash, No Lesions, No Jaundice, No Bruising, No Other Vital Signs Vital Signs Date Time Temp Pulse Resp B/P (MAP) Pulse Ox O2 Delivery O2 Flow Rate FiO2 01/18/24 09:48 88 124/90 01/18/24 05:37 Room Air* 0 21 01/18/24 04:00 99 01/18/24 02:00 27 01/17/24 19:25 97.9 97.9 Physical Exam General Appearance: Well developed. Well nourished. NAD Head Exam: Normal inspection Neck Exam: Normal inspection. Non-tender. Normal alignment Pulmonary/Respiratory: Chest non-tender. Clear bilateral breath sounds Cardiovascular/Chest: Regular rate and rhythm. No murmurs. No JVD. Peripheral Pulses: 2+ Radial (R). 2+ Radial (L). 2+ Pedal (R). 2+ Pedal (L) Abdominal Exam: Normal bowel sounds. Soft. Nontender. No hepatospenomegaly. No masses, scrotal swelling Ankle Exam: Negative ankle edema Lower extremities: Negative lower extremity edema Neuro/Mental Status: A&O x2. Labs/Diagnostic Data Labs Test 01/18/24 12:00 01/18/24 03:55 01/17/24 23:40 01/17/24 21:37 Range/Units Ammonia 31 11-32 umol/L Troponin I High Sensitivity 3173 *H </=54 ng/L White Blood Count 14.7 #H 4.4-10.8 10^3/uL Red Blood Count 4.39 L 4.5-5.90 10^6/uL Hemoglobin 15.3 13.5-17.5 g/dL Hematocrit 46.1 41.0-53.0 % Mean Corpuscular Volume 105.1 H 80.0-100.0 fL Mean Corpuscular Hemoglobin 34.9 H 28.0-32.0 pg Mean Corpuscular Hemoglobin Concent 33.3 32.0-36.0 g/dL Red Cell Distribution Width 13.9 11.8-14.3 % Platelet Count 85 L 140-450 10^3/uL Mean Platelet Volume 11.4 H 6.9-10.8 fL Neutrophils (%) (Auto) 90.1 H 37.0-80.0 % Lymphocytes (%) (Auto) 3.3 L 10.0-50.0 % Monocytes (%) (Auto) 6.2 0.0-12.0 % Eosinophils (%) (Auto) 0.0 0.0-7.0 % Basophils (%) (Auto) 0.4 0.0-2.0 % Neutrophils # (Auto) 13.3 H 1.6-8.6 10 ^3/uL Lymphocytes # (Auto) 0.5 0.4-5.4 10 ^3/uL Monocytes # (Auto) 0.9 0-1.3 10 ^3/uL Eosinophils # (Auto) 0 0-0.8 10 ^3/uL Basophils # (Auto) 0.1 0-0.2 10 ^3/uL Nucleated Red Blood Cells 0.0 % Sodium Level 142 136-145 mmol/L Potassium Level 4.8 3.5-5.1 mmol/L Chloride Level 107 98-107 mmol/L Carbon Dioxide Level 20 20-31 mmol/L Anion Gap 15 5-15 Blood Urea Nitrogen 30 #H 9-23 mg/dL Creatinine 2.62 H 0.700-1.30 mg/dL Glomerular Filtration Rate Calc 30 >90 mL/min BUN/Creatinine Ratio 11.5 10.0-20.0 Serum Glucose 111 H 74-106 mg/dL Hemoglobin A1c 4.8 <5.7 % A1C Calcium Level 9.2 8.7-10.4 mg/dL Phosphorus Level 4.2 2.4-5.1 mg/dL Magnesium Level 2.0 1.6-2.6 mg/dL Total Bilirubin 1.0 0.2-1.0 mg/dL Direct Bilirubin 0.4 H <0.3 mg/dL Aspartate Amino Transferase (AST) 1081 H 13-40 U/L Alanine Aminotransferase (ALT) 184 H 7-40 U/L Alkaline Phosphatase 52 46-116 U/L Total Protein 7.3 5.7-8.2 g/dL Albumin 4.1 3.2-4.8 g/dL Triglycerides Level 140 < 150 mg/dL Cholesterol Level 154 < 200 mg/dL LDL Cholesterol 75 < 100 mg/dL HDL Cholesterol 57 40-59 mg/dL Vitamin D 25-Hydroxy 15.9 L 30.0-100 ng/mL Thyroid Stimulating Hormone (TSH) 6.61 H 0.55-4.78 uIU/mL Lactic Acid Level 2.0 0.4-2.0 mmol/L Blood Gas Specimen Type Arterial Blood Gas Sample Site Right radial Blood Gas Patient Temperature 37.0 Arterial Blood Date Drawn [id number] Arterial Blood pH 7.494 H 7.350-7.450 Arterial Blood Partial Pressure CO2 25.7 L 35.0-48.0 mmHg Arterial Blood Partial Pressure O2 84.3 83.0-108.0 mmHg Arterial Blood HCO3 19.3 L 21.0-28.0 mmol/L Arterial Blood Oxygen Saturation 96.7 94.0-98.0 % Arterial Blood Base Excess -2.0 -2.0-3.0 mmol/L Arterial Blood Oxyhemoglobin 90.7 L 94.0-98.0 % Arterial Blood Carboxyhemoglobin 5.9 H 0.5-1.5 % Arterial Blood Methemoglobin 0.3 0.0-1.5 % Jame Test Yes Blood Gas Total Hemoglobin 15.80 13.5-17.5 g/dL Blood Gas Liter Flow 2.00 Blood Gas Modality Nasal cannula Blood Gas Spontaneous Rate 28 FiO2 % 28.0 Test 01/17/24 20:52 01/17/24 13:42 Range/Units Urine Color Light-orange Yellow Urine Clarity Turbid H Clear Urine pH 5.5 5.0-9.0 Urine Specific [place] 1.018 1.001-1.035 Urine Protein 2+ H Negative Urine Ketones Trace Negative Urine Blood 3+ H Negative /uL Urine Nitrite Negative Negative Urine Bilirubin Negative Negative Urine Urobilinogen Normal Negative mg/dL Urine Leukocyte Esterase Negative Negative /uL Urine RBC <1 0 - 3 /hpf Urine WBC 2 0 - 3 /hpf Urine Squamous Epithelial Cells None seen <5 /hpf Urine Bacteria None seen None Seen /hpf Urine Mucus Few None Seen Urine Glucose Normal Normal mg/dL Urine Opiates Screen Neg NEGATIVE Urine Fentanyl Screen Neg NEGATIVE Urine Barbiturates Screen Neg NEGATIVE Urine Phencyclidine Screen Neg NEGATIVE Urine Amphetamines Screen Neg NEGATIVE Urine Benzodiazepines Screen Neg NEGATIVE Urine Cocaine Screen Neg NEGATIVE Urine Cannabinoids Screen Neg NEGATIVE B-Type Natriuretic Peptide 2677.09 0-100 pg/mL Plasma/Serum Blood Alcohol < 3.0 <10 mg/dL Assessment ROBERTO likely hemodynamically mediated in setting of cardiorenal syndrome High ck sec to Myocardial ischemia /NSTEMI Acute on chronic HFrEF EF 10 NSTEMI type 2 likely due to above Leukocytosis History of alcohol abuse Elevated liver enzymes Lactic acidosis Plan/recommendation Dr. Garrett: -continue Lasix 40 mg IV b.i.d. -echocardiogram showed 10% ejection fraction with global hypokinesis -maintain strict I&O, avoid nephrotoxic medication. -urinalysis: Negative for nitrites, leukocytosis, squamous epithelial cells. Urine protein 2+ -UDS negative for serum alcohol, drugs. -ordered urine sodium, creatinine, 20 over total protein, serum phosphorus. -cardiology consultation for HFrEF: Started dobutamine drip. Time spent > 79 minutes, majority of time spent talking to patient [id number]. Thank you for consultation. Addendum noted echo, ck elevation sec to NSTEMI likely ID ,, not rhabdomyolysis dc ivf lasix 40mg iv bid Patient seen and examined, plan discussed with resident. Agree with above, we will follow closely Plan discussed with: Patient, Other (RN) АНДРЕЙ HENRY Jan 18, 2024 13:20 SHAWNEE GARRETT MD Jan 18, 2024 22:00
--- NOTE | 2024-01-18 13:29 | DVH ---
INDICATION: ROBERTO TECHNIQUE: Multiple real-time sonographic images of the kidneys and bladder were obtained. COMPARISON: None FINDINGS: The right kidney measures 11.2 cm in length, which is normal in size. There is normal echogenicity of the right kidney. No hydronephrosis. The left kidney measures 11.1 cm in length, which is normal in size. There is normal echogenicity of the left kidney. No hydronephrosis. The urinary bladder is decompressed with Seaman catheter. IMPRESSION: 1. Normal sonographic appearance of the kidneys. No hydronephrosis.
[2024-01-18] MEDS: SODIUM CHLORIDE 0.9% 1,000 ML IV ONE (14:01)
[2024-01-18] MEDS: DOBUTamine 1000MCG/ML 250 ML IV SCH (15:10)
[2024-01-18 17:00] VITALS: BP_SYST 102; BP_SYST 142; BP_DIAS 73; BP_DIAS 89; PULSE 68; PULSE 77; RESP 16; RESP 17; TEMP 97.8; TEMP 98.7; O2SAT 100; O2SAT 96
--- NOTE | 2024-01-18 17:23 | DVHPN2 ---
Subjective 48-year-old male with a history of congestive heart failure, low ejection fraction, type 2 diabetes, hypertension, alcoholism was admitted here due to altered level of consciousness He was lethargic He was found to be in acute kidney injury and rhabdomyolysis Changes from previous H/P or p: Changes Objective Vitals Vital Signs Date Time Temp Pulse Resp B/P (MAP) Pulse Ox O2 Delivery O2 Flow Rate FiO2 01/18/24 15:10 98/68 01/18/24 13:00 98.5 78 20 95 98.5 01/18/24 08:00 Room Air* 0 21 General Appearance: Alert, Oriented X3 Lungs: Clear to auscultation, Normal air movement Cardiovascular: Regular rate, Normal S2 Abdomen: Normal bowel sounds, Soft, No tenderness Extremities: No edema Medications Current Medications Medications Dose Ordered Sig/Ady Route Start Time Stop Time Status Last Admin Dose Admin Furosemide 20 mg BIDD IV 01/18/24 06:00 Temazepam 15 mg QHSP PRN PO 01/17/24 21:15 01/18/24 03:46 15 MG Ondansetron HCl 4 mg Q4HP PRN IV 01/17/24 21:15 Acetaminophen 650 mg Q6HP PRN PO 01/17/24 21:15 Nitroglycerin 0.4 mg Q5MINP PRN SL 01/17/24 21:15 Morphine Sulfate 2 mg Q30M PRN IV 01/17/24 21:15 Ceftriaxone Sodium 50 ml @ 100 mls/hr DAILY@09 IV 01/18/24 09:00 01/18/24 09:47 100 MLS/HR Aspirin 81 mg DAILY PO 01/19/24 10:00 Dobutamine HCl/ Dextrose 250 ml @ 12.27 mls/ hr [id number] IV 01/18/24 11:00 01/18/24 15:10 12.27 MLS/HR Laboratory Results Laboratory Tests 01/18/24 03:55 Chemistry Test 01/18/24 03:55 Albumin 4.1 g/dL (3.2-4.8) Calcium Level 9.2 mg/dL (8.7-10.4) Magnesium Level 2.0 mg/dL (1.6-2.6) Phosphorus Level 4.2 mg/dL (2.4-5.1) Total Protein 7.3 g/dL (5.7-8.2) Lipid panel Test 01/18/24 03:55 Cholesterol Level 154 mg/dL (< 200) HDL Cholesterol 57 mg/dL (40-59) Triglycerides Level 140 mg/dL (< 150) LFT Test 01/18/24 03:55 Alanine Aminotransferase (ALT) 184 U/L (7-40) H Alkaline Phosphatase 52 U/L (46-116) Aspartate Amino Transferase (AST) 1081 U/L (13-40) H Direct Bilirubin 0.4 mg/dL (<0.3) H Total Bilirubin 1.0 mg/dL (0.2-1.0) HgA1c, TSH Test 01/18/24 03:55 Hemoglobin A1c 4.8 % A1C (<5.7) Thyroid Stimulating Hormone (TSH) 6.61 uIU/mL (0.55-4.78) H Urinalysis Test 01/17/24 20:52 Urine Color Light-orange (Yellow) Urine Clarity Turbid (Clear) H Urine pH 5.5 (5.0-9.0) Urine Specific [place] 1.018 (1.001-1.035) Urine Protein 2+ (Negative) H Urine Ketones Trace (Negative) Urine Blood 3+ /uL (Negative) H Urine Nitrite Negative (Negative) Urine Bilirubin Negative (Negative) Urine Urobilinogen Normal mg/dL (Negative) Urine Leukocyte Esterase Negative /uL (Negative) Urine RBC <1 /hpf (0 - 3) Urine WBC 2 /hpf (0 - 3) Urine Squamous Epithelial Cells None seen /hpf (<5) Urine Bacteria None seen /hpf (None Seen) Urine Mucus Few (None Seen) Urine Glucose Normal mg/dL (Normal) Blood Gas Results Test 01/17/24 21:37 Arterial Blood pH 7.494 (7.350-7.450) FiO2 % 28.0 Assessment/Plan Assessment/Plan Rhabdomyolysis Acute kidney injury due to vasomotor nephropathy Dilated cardiomyopathy, ejection fraction 10% Acute on chronic decompensated heart failure with reduced ejection fraction NSTEMI likely type 2 History of ICD Thrombocytopenia Hematuria Elevated liver function tests Alcoholism Homelessness Leukocytosis Lactic acidosis Plan Continue IV fluids with normal saline Continue IV Lasix Echocardiogram showed ejection fraction 10% Monitor for alcohol withdrawal Cardiology consult Nephrology consult Dopamine drip ordered by Cardiology Aspirin Plan discussed with: Patient My Orders Orders - CLARISSA FRY MD Procedure Category Date Status Time * Sample Checker CONS 01/18/24 Transmitted Consult Date of Service: Jan 18, 2024 Billing Provider: CLARISSA FRY MD Common Visit Codes: [id number] INP/OBS CARE(HIGH) CLARISSA FRY MD Jan 18, 2024 17:23
[2024-01-18 20:00] VITALS: PULSE 88
[2024-01-18 21:00] VITALS: BP 122/77; PULSE 82; RESP 18; TEMP 98.8; O2SAT 96
[2024-01-19] VITALS (8 sets, daily range): BP systolic 107–120; BP diastolic 73–84; PULSE 70–87; RESP 16–20; TEMP 97.8–98.7; O2SAT 96–99
[2024-01-19] MEDS: FUROSEMIDE 20 MG/2 ML VIAL IV SCH (05:39)
[2024-01-19 06:01] LABS: Basophils # (auto) 0 10 ^3/uL (0-0.2); Basophils % (auto) 0.3 % (0.0-2.0); Eosinophils # (auto) 0 10 ^3/uL (0-0.8); Hematocrit 41.3 % (41.0-53.0); Hemoglobin 14.2 g/dL (13.5-17.5); Lymphocytes # (auto) 0.7 10 ^3/uL (0.4-5.4); Lymphocytes % (auto) 6.4 % (10.0-50.0); Mean Corpuscular Hemoglobin 36.1 pg (28.0-32.0); Mean Corpuscular Hgb Conc. 34.4 g/dL (32.0-36.0); Mean Corpuscular Volume 104.9 fL (80.0-100.0); Monocytes # (auto) 0.9 10 ^3/uL (0-1.3); Monocytes % (auto) 8.1 % (0.0-12.0); Neutrophils # (auto) 9.8 10 ^3/uL (1.6-8.6); Neutrophils % (auto) 85.2 % (37.0-80.0); Nucleated Red Blood Cells % 0.1 %; Platelet Count (auto) 72 10^3/uL (140-450); Red Blood Cells 3.94 10^6/uL (4.5-5.90); Red Cell Distribution Width 13.2 % (11.8-14.3); White Blood Cell 11.5 10^3/uL (4.4-10.8)
[2024-01-19 06:30] LABS: Alanine Aminotransferase 152 U/L (7-40); Albumin 3.5 g/dL (3.2-4.8); Alkaline Phosphatase 53 U/L (46-116); Anion Gap 14 (5-15); Aspartate Aminotransferase 692 U/L (13-40); BUN/Creatinine Ratio 15.5 (10.0-20.0); Bilirubin, Total 0.9 mg/dL (0.2-1.0); Calcium 8.6 mg/dL (8.7-10.4); Carbon Dioxide 22 mmol/L (20-31); Chloride 105 mmol/L (98-107); Cholesterol 135 mg/dL (< 200); Glucose 90 mg/dL (74-106); HDL Cholesterol 41 mg/dL (40-59); LDL Cholesterol 71 mg/dL (< 100); Potassium 4.1 mmol/L (3.5-5.1); Sodium 141 mmol/L (136-145); Total Protein 6.1 g/dL (5.7-8.2); Triglycerides 134 mg/dL (< 150)
[2024-01-19 06:35] LABS: Blood Urea Nitrogen 60 mg/dL (9-23)
[2024-01-19 06:46] LABS: Creatine Kinase IFCC 12463 U/L (46-171)
[2024-01-19] MEDS: ASPirin 81 mg TAB PO SCH (09:46)
--- NOTE | 2024-01-19 11:14 | DVHPN2 ---
Consult Progress Note Date Seen: Jan 19, 2024 Subjective Other Systems: Somnolent, no cardiac events reported Objective vital signs Vital Sign Date Time Temp Pulse Resp B/P (MAP) Pulse Ox O2 Delivery O2 Flow Rate FiO2 01/19/24 09:00 97.8 78 19 115/84 (94) 98 97.8 01/18/24 20:00 Room Air* 0 21 Total Intake and Output 01/18/24 01/18/24 01/19/24 15:00 23:00 07:00 Intake Total 50 ml 1015 ml 250 ml Output Total 200 ml 600 ml Balance 50 ml 815 ml -350 ml medications Current Medications Medications Dose Ordered Sig/Ady Route Start Time Stop Time Status Last Admin Dose Admin Temazepam 15 mg QHSP PRN PO 01/17/24 21:15 01/18/24 03:46 15 MG Ondansetron HCl 4 mg Q4HP PRN IV 01/17/24 21:15 Acetaminophen 650 mg Q6HP PRN PO 01/17/24 21:15 Nitroglycerin 0.4 mg Q5MINP PRN SL 01/17/24 21:15 Morphine Sulfate 2 mg Q30M PRN IV 01/17/24 21:15 Ceftriaxone Sodium 50 ml @ 100 mls/hr DAILY@09 IV 01/18/24 09:00 01/19/24 09:46 100 MLS/HR Aspirin 81 mg DAILY PO 01/19/24 10:00 01/19/24 09:46 81 MG Dobutamine HCl/ Dextrose 250 ml @ 12.27 mls/ hr [id number] IV 01/18/24 11:00 01/18/24 15:10 12.27 MLS/HR Furosemide 40 mg BIDD IV 01/19/24 06:00 01/19/24 05:39 40 MG Examination: GENERAL:Abnormal (Unkept), LUNGS:Abnormal (+crackles), CVS:Normal, NEURO:Abnormal (ALOC, somnolent) laboratory and microbiology Laboratory Tests 01/19/24 05:09 Test 01/19/24 05:09 Range/Units Serum Glucose 90 74-106 mg/dL Problem List/Assessment/Plan Problem List/Assessment/Plan Acute on chronic decompensated HFrEF, NYHA Class IV Unspecified dilated cardiomyopathy with an EF of 10% NSTEMI, likely type 2 secondary to above Presence of single-lead AICD ([facility] 2022) Acute kidney injury Thrombocytopenia Hematuria Elevated LFTs Alcoholism Plan/Recommendation (Dr. Pool) * Echocardiogram revealed: Severely dilated left ventricle. Severely reduced left ventricular systolic function estimated ejection fraction of 10%. In a global fashion. Severely reduced right ventricular systolic function. Moderately dilated right and left atria. Normal aortic valve structure and function. There is a moderate mitral valve regurgitation. There is [id number] tricuspid valve regurgitation. The pulmonary valve is grossly normal. No pericardial effusion. * Preload and afterload reduction. Continue dobutamine drip * Strict I&Os. Daily weight. Maintain fluid restriction * Initiate GDMT for CHF when appropriate * Hold given ROBERTO and inotropic agent ensuing * Nephrology consult and recommendations * DVT/VTE prophylaxis: SCDs * Repeat portable CXR Thank you for allowing us to participate in this patient's care. Please call if you have any questions or concerns. This medical document was created using an electronic medical record system with voice recognition software and computerized dictation system. Although this document has been carefully reviewed, there might still be some phonetic and typographical errors. Occasional wrong-word or ``sound-alike substitutions may have occurred due to the inherent limitations of voice recognition software. These areas are purely typographical due to imperfections of the software programs and do not reflect any compromise in the patient's medical care. Please read the chart carefully and recognize, using context, where these substitutions have occurred. Plan discussed with: Other Date of Service: Jan 19, 2024 Billing Provider: ELADIO POOL MD Cardiology Common Codes: [id number] HOSP CARE([facility] Jan 19, 2024 11:14
--- NOTE | 2024-01-19 11:34 | DVHPN2 ---
Subjective Confused Complains of pain in his legs Changes from previous H/P or p: Changes Objective Vitals Vital Signs Date Time Temp Pulse Resp B/P (MAP) Pulse Ox O2 Delivery O2 Flow Rate FiO2 01/19/24 09:00 97.8 78 19 115/84 (94) 98 97.8 01/19/24 08:00 Room Air* 0 21 Intake/Output Intake and Output 01/19/24 07:00 Intake Total 1315 ml Output Total 800 ml Balance 515 ml Intake Oral 890 ml IV Total 425 ml Output Urine Total 800 ml General Appearance: Alert, Oriented X3 Lungs: Clear to auscultation, Normal air movement Cardiovascular: Regular rate, Normal S2 Abdomen: Normal bowel sounds, Soft, No tenderness Extremities: No edema Medications Current Medications Medications Dose Ordered Sig/Ady Route Start Time Stop Time Status Last Admin Dose Admin Temazepam 15 mg QHSP PRN PO 01/17/24 21:15 01/18/24 03:46 15 MG Ondansetron HCl 4 mg Q4HP PRN IV 01/17/24 21:15 Acetaminophen 650 mg Q6HP PRN PO 01/17/24 21:15 Nitroglycerin 0.4 mg Q5MINP PRN SL 01/17/24 21:15 Morphine Sulfate 2 mg Q30M PRN IV 01/17/24 21:15 Ceftriaxone Sodium 50 ml @ 100 mls/hr DAILY@09 IV 01/18/24 09:00 01/19/24 09:46 100 MLS/HR Aspirin 81 mg DAILY PO 01/19/24 10:00 01/19/24 09:46 81 MG Dobutamine HCl/ Dextrose 250 ml @ 12.27 mls/ hr [id number] IV 01/18/24 11:00 01/18/24 15:10 12.27 MLS/HR Furosemide 40 mg BIDD IV 01/19/24 06:00 01/19/24 05:39 40 MG Laboratory Results Laboratory Tests 01/19/24 05:09 Chemistry Test 01/19/24 05:09 Albumin 3.5 g/dL (3.2-4.8) Calcium Level 8.6 mg/dL (8.7-10.4) L Magnesium Level 2.0 mg/dL (1.6-2.6) Total Protein 6.1 g/dL (5.7-8.2) Lipid panel Test 01/19/24 05:09 Cholesterol Level 135 mg/dL (< 200) HDL Cholesterol 41 mg/dL (40-59) Triglycerides Level 134 mg/dL (< 150) Cardiac Markers Test 01/19/24 05:09 B-Type Natriuretic Peptide 1635.74 pg/mL (0-100) LFT Test 01/19/24 05:09 Alanine Aminotransferase (ALT) 152 U/L (7-40) H Alkaline Phosphatase 53 U/L (46-116) Aspartate Amino Transferase (AST) 692 U/L (13-40) H Total Bilirubin 0.9 mg/dL (0.2-1.0) HgA1c, TSH Test 01/19/24 05:09 Thyroid Stimulating Hormone (TSH) 3.62 uIU/mL (0.55-4.78) Urinalysis Test 01/17/24 20:52 Urine Color Light-orange (Yellow) Urine Clarity Turbid (Clear) H Urine pH 5.5 (5.0-9.0) Urine Specific [place] 1.018 (1.001-1.035) Urine Protein 2+ (Negative) H Urine Ketones Trace (Negative) Urine Blood 3+ /uL (Negative) H Urine Nitrite Negative (Negative) Urine Bilirubin Negative (Negative) Urine Urobilinogen Normal mg/dL (Negative) Urine Leukocyte Esterase Negative /uL (Negative) Urine RBC <1 /hpf (0 - 3) Urine WBC 2 /hpf (0 - 3) Urine Squamous Epithelial Cells None seen /hpf (<5) Urine Bacteria None seen /hpf (None Seen) Urine Mucus Few (None Seen) Urine Glucose Normal mg/dL (Normal) Assessment/Plan Assessment/Plan Rhabdomyolysis Acute kidney injury due to vasomotor nephropathy Dilated cardiomyopathy, ejection fraction 10% Acute on chronic decompensated heart failure with reduced ejection fraction NSTEMI likely type 2 History of ICD Thrombocytopenia Hematuria Elevated liver function tests Alcoholism Homelessness Leukocytosis Lactic acidosis Plan 01/18/24: Continue IV fluids with normal saline Continue IV Lasix Echocardiogram showed ejection fraction 10% Monitor for alcohol withdrawal Cardiology consult Nephrology consult Dopamine drip ordered by Cardiology Aspirin 01/19/2024: Continue the current management IV fluids were discontinued by Nephrology Continue IV Lasix Rhabdomyolysis is improving, CK is coming down Troponin is better Echocardiogram showed ejection fraction 10% Monitor closely broke worker consult for homelessness Plan discussed with: Patient My Orders Orders - CLARISSA FRY MD Procedure Category Date Status Time * Cigar Head Pegger CONS 01/18/24 Transmitted Consult Date of Service: Jan 19, 2024 Billing Provider: CLARISSA FRY MD Common Visit Codes: [id number] INP/OBS CARE(HIGH) CLARISSA FRY MD Jan 19, 2024 11:34
--- NOTE | 2024-01-19 14:54 | DVHPN2 ---
Progress Note Date Seen: Jan 19, 2024 Resident Creating Document: АНДРЕЙ HENRY RESIDENT Medical Necessity Reason Pt with a Central, PICC or Fol: No Subjective Review of Systems Patient is a 48-year-old male with past medical history of hypertension, presence of AICD brought to the hospital via EMS for chief complaint altered level of consciousness. 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 As per patient he did not recall how ended up in the hospital. Patient complaining of cough, denying any other symptoms including fever, chills, chest pain, shortness of breath, any other symptoms at this point. Patient is poor historian, not able to provide his medical history, what kind of medication he takes or any other information. Past Medical History Not able to obtain Past Surgical History Status post single lead AICD placement Family History: Patient reports no known family medical history. Family History Unable to obtain Social History Three beers per day, chronic alcohol consumption Former smoker, smoked for at least 10-12 years. Stopped three years ago. Patient denied use of illicit drug or tobacco. Patient seen and examined at bedside. Patient is feeling much better compared to yesterday. Patient has good urine output. 800 mL output on 01/19/2024. Continue to monitor urine output. Objective vital signs Vital Sign Date Time Temp Pulse Resp B/P (MAP) Pulse Ox O2 Delivery O2 Flow Rate FiO2 01/19/24 14:35 111/84 01/19/24 13:00 98.7 70 18 96 98.7 01/19/24 08:00 Room Air* 0 21 Total Intake and Output 01/18/24 01/18/24 01/19/24 15:00 23:00 07:00 Intake Total 50 ml 1015 ml 250 ml Output Total 200 ml 600 ml Balance 50 ml 815 ml -350 ml medications Current Medications Medications Dose Ordered Sig/Ady Route Start Time Stop Time Status Last Admin Dose Admin Ondansetron HCl 4 mg Q4HP PRN IV 01/17/24 21:15 Acetaminophen 650 mg Q6HP PRN PO 01/17/24 21:15 Nitroglycerin 0.4 mg Q5MINP PRN SL 01/17/24 21:15 Morphine Sulfate 2 mg Q30M PRN IV 01/17/24 21:15 Ceftriaxone Sodium 50 ml @ 100 mls/hr DAILY@09 IV 01/18/24 09:00 01/19/24 09:46 100 MLS/HR Aspirin 81 mg DAILY PO 01/19/24 10:00 01/19/24 09:46 81 MG Dobutamine HCl/ Dextrose 250 ml @ 12.27 mls/ hr [id number] IV 01/18/24 11:00 01/19/24 14:35 12.27 MLS/HR Furosemide 40 mg BIDD IV 01/19/24 06:00 01/19/24 05:39 40 MG Examination General Appearance: Well developed. Well nourished. NAD Head Exam: Normal inspection Neck Exam: Normal inspection. Non-tender. Normal alignment Pulmonary/Respiratory: Chest non-tender. Clear bilateral breath sounds Cardiovascular/Chest: Regular rate and rhythm. No murmurs. No JVD. Peripheral Pulses: 2+ Radial (R). 2+ Radial (L). 2+ Pedal (R). 2+ Pedal (L) Abdominal Exam: Normal bowel sounds. Soft. Nontender. No hepatospenomegaly. No masses, scrotal swelling Ankle Exam: Negative ankle edema Lower extremities: Negative lower extremity edema Neuro/Mental Status: A&O x2. laboratory and microbiology Laboratory Tests 01/19/24 05:09 Test 01/19/24 05:09 Range/Units Serum Glucose 90 74-106 mg/dL Microbiology Date/Time Source Procedure Growth Status 01/17/24 22:47 Sputum Gram Stain - Final Resulted 01/17/24 22:47 Sputum Respiratory Culture - Preliminary Resulted Problem List/Assessment/Plan Problem List/Assessment/Plan ROBERTO likely hemodynamically mediated in setting of cardiorenal syndrome High ck sec to Myocardial ischemia /NSTEMI Acute on chronic HFrEF EF 10 NSTEMI type 2 likely due to above Leukocytosis History of alcohol abuse Elevated liver enzymes Lactic acidosis Plan/recommendation Dr. Irving: -continue Lasix 40 mg IV b.i.d.: Improved urine output, 800 mL on 01/18/2024. -echocardiogram showed 10% ejection fraction with global hypokinesis -maintain strict I&O, avoid nephrotoxic medication. -urinalysis: Negative for nitrites, leukocytosis, squamous epithelial cells. Urine protein 2+ -UDS negative for serum alcohol, drugs. -ordered urine sodium, creatinine, total protein, serum phosphorus.: Pending -cardiology consultation for HFrEF: Started dobutamine ip. Time spent > 70 minutes, majority of time spent talking to patient [id number]. Thank you for consultation. Addendum Patient seen and examined, plan discussed with resident. Agree with above, we will follow closely Plan discussed with: Patient, Other (RN) My Orders My Orders Orders - АНДРЕЙ HENRY Procedure Category Date Status Time Creatine Kinase Ckmb LAB 01/19/24 Logged 14:43 АНДРЕЙ HENRY Jan 19, 2024 14:54 SHAWNEE IRVING MD Jan 19, 2024 18:28
[2024-01-20] VITALS (8 sets, daily range): BP systolic 107–122; BP diastolic 56–94; PULSE 61–80; RESP 16–19; TEMP 97.5–98.5; O2SAT 93–100
--- NOTE | 2024-01-20 05:25 | DVH ---
CHEST RADIOGRAPH Indication: CHF Technique: Single frontal view of the chest was obtained COMPARISON: XY CHEST XRAY 1 VIEW on DOS: 01/17/24 FINDINGS: Lines and Tubes: Left chest wall AICD Lungs: Congestion Pleura: No effusion. No pneumothorax. Cardiomediastinal contours: Cardiomegaly Bones: Unremarkable IMPRESSION: Mild congestion
[2024-01-20 06:48] LABS: Basophils # (auto) 0 10 ^3/uL (0-0.2); Eosinophils # (auto) 0 10 ^3/uL (0-0.8); Monocytes # (auto) 0.9 10 ^3/uL (0-1.3); Monocytes % (auto) 9.4 % (0.0-12.0); Platelet Count (auto) 84 10^3/uL (140-450)
[2024-01-20 06:50] LABS: Basophils % (auto) 0.4 % (0.0-2.0); Eosinophils % (auto) 0.2 % (0.0-7.0); Hematocrit 43.7 % (41.0-53.0); Hemoglobin 15.1 g/dL (13.5-17.5); Mean Corpuscular Hemoglobin 35.8 pg (28.0-32.0); Mean Corpuscular Hgb Conc. 34.6 g/dL (32.0-36.0); Mean Corpuscular Volume 103.3 fL (80.0-100.0); Red Blood Cells 4.23 10^6/uL (4.5-5.90); Red Cell Distribution Width 13.4 % (11.8-14.3)
[2024-01-20 07:01] LABS: Alanine Aminotransferase 148 U/L (7-40); Albumin 3.9 g/dL (3.2-4.8); Alkaline Phosphatase 57 U/L (46-116); Anion Gap 13 (5-15); Aspartate Aminotransferase 561 U/L (13-40); BUN/Creatinine Ratio 19.2 (10.0-20.0); Blood Urea Nitrogen 66 mg/dL (9-23); Calcium 9.2 mg/dL (8.7-10.4); Carbon Dioxide 24 mmol/L (20-31); Chloride 101 mmol/L (98-107); Glucose 85 mg/dL (74-106); Sodium 138 mmol/L (136-145)
[2024-01-20 07:02] LABS: Bilirubin, Total 1.1 mg/dL (0.2-1.0); Phosphorus 5.2 mg/dL (2.4-5.1); Total Protein 6.7 g/dL (5.7-8.2)
[2024-01-20 07:14] LABS: Creatine Kinase IFCC 8306 U/L (46-171)
--- NOTE | 2024-01-20 11:23 | DVHPN2 ---
Progress Note Date Seen: Jan 20, 2024 Resident Creating Document: АНДРЕЙ HENRY RESIDENT Medical Necessity Reason Pt with a Central, PICC or Fol: No Subjective Review of Systems Patient is a 48-year-old male with past medical history of hypertension, presence of AICD brought to the hospital via EMS for chief complaint altered level of consciousness. 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 As per patient he did not recall how ended up in the hospital. Patient complaining of cough, denying any other symptoms including fever, chills, chest pain, shortness of breath, any other symptoms at this point. Patient is poor historian, not able to provide his medical history, what kind of medication he takes or any other information. Past Medical History Not able to obtain Past Surgical History Status post single lead AICD placement Family History: Patient reports no known family medical history. Family History Unable to obtain Social History Three beers per day, chronic alcohol consumption Former smoker, smoked for at least 10-12 years. Stopped three years ago. Patient denied use of illicit drug or tobacco. Patient seen and examined at bedside. Patient is feeling much better compared to yesterday. Patient has good urine output. 2600 mL output on 01/20/2024. Continue to monitor urine output. Objective vital signs Vital Sign Date Time Temp Pulse Resp B/P (MAP) Pulse Ox O2 Delivery O2 Flow Rate FiO2 01/20/24 09:00 97.5 69 16 112/82 (92) 100 97.5 01/19/24 20:00 Room Air* 0 21 Total Intake and Output 01/19/24 01/19/24 01/20/24 15:00 23:00 07:00 Intake Total 50 ml 620 ml 200 ml Output Total 1675 ml 925 ml Balance 50 ml -1055 ml -725 ml medications Current Medications Medications Dose Ordered Sig/Ady Route Start Time Stop Time Status Last Admin Dose Admin Ondansetron HCl 4 mg Q4HP PRN IV 01/17/24 21:15 Acetaminophen 650 mg Q6HP PRN PO 01/17/24 21:15 Nitroglycerin 0.4 mg Q5MINP PRN SL 01/17/24 21:15 Morphine Sulfate 2 mg Q30M PRN IV 01/17/24 21:15 Ceftriaxone Sodium 50 ml @ 100 mls/hr DAILY@09 IV 01/18/24 09:00 01/20/24 10:09 100 MLS/HR Aspirin 81 mg DAILY PO 01/19/24 10:00 01/20/24 10:09 81 MG Furosemide 40 mg BIDD IV 01/19/24 06:00 01/19/24 17:33 40 MG Dobutamine HCl/ Dextrose 250 ml @ 12.27 mls/ hr [id number] IV 01/20/24 12:00 Examination General Appearance: Well developed. Well nourished. NAD Head Exam: Normal inspection Neck Exam: Normal inspection. Non-tender. Normal alignment Pulmonary/Respiratory: Chest non-tender. Clear bilateral breath sounds Cardiovascular/Chest: Regular rate and rhythm. No murmurs. No JVD. Peripheral Pulses: 2+ Radial (R). 2+ Radial (L). 2+ Pedal (R). 2+ Pedal (L) Abdominal Exam: Normal bowel sounds. Soft. Nontender. No hepatospenomegaly. No masses, scrotal swelling Ankle Exam: Negative ankle edema Lower extremities: Negative lower extremity edema Neuro/Mental Status: A&O x2. laboratory and microbiology Laboratory Tests 01/20/24 05:45 Test 01/20/24 05:45 Range/Units Serum Glucose 85 74-106 mg/dL Microbiology Date/Time Source Procedure Growth Status 01/17/24 22:47 Sputum Gram Stain - Final Resulted 01/17/24 22:47 Sputum Respiratory Culture - Preliminary Resulted Problem List/Assessment/Plan Problem List/Assessment/Plan ROBERTO likely hemodynamically mediated in setting of cardiorenal syndrome High ck sec to Myocardial ischemia /NSTEMI Acute on chronic HFrEF EF 10 NSTEMI type 2 likely due to above Leukocytosis History of alcohol abuse Elevated liver enzymes Lactic acidosis Plan/recommendation Dr. Irving: -continue Lasix 40 mg IV b.i.d.: Improved urine output, 2600 mL on 01/20/2024. -echocardiogram showed 10% ejection fraction with global hypokinesis -maintain strict I&O, avoid nephrotoxic medication. -urinalysis: Negative for nitrites, leukocytosis, squamous epithelial cells. Urine protein 2+ -UDS negative for serum alcohol, drugs. -ordered urine sodium, creatinine, total protein, serum phosphorus.: Still Pending -cardiology consultation for HFrEF: Started dobutamine drip. Addendum Patient seen and examined, plan discussed with resident. Agree with above, we will follow closely Plan discussed with: Patient, Other (RN) My Orders My Orders Orders - АНДРЕЙ HENRY Procedure Category Date Status Time Creatine Kinase Ckmb LAB 01/19/24 In Process 14:43 АНДРЕЙ HENRY Jan 20, 2024 11:23 SHAWNEE IRVING MD Jan 20, 2024 18:46
--- NOTE | 2024-01-20 11:35 | DVHPN2 ---
Consult Progress Note Subjective Patient reports: No new complaints Review of Systems: HEENT:Abnormal, CVS:Abnormal, RESPIRATORY:Abnormal, GI:Abnormal Objective vital signs Vital Sign Date Time Temp Pulse Resp B/P (MAP) Pulse Ox O2 Delivery O2 Flow Rate FiO2 01/20/24 09:00 97.5 69 16 112/82 (92) 100 97.5 01/20/24 08:00 Room Air* 0 21 Total Intake and Output 01/19/24 01/19/24 01/20/24 15:00 23:00 07:00 Intake Total 50 ml 620 ml 200 ml Output Total 1675 ml 925 ml Balance 50 ml -1055 ml -725 ml medications Current Medications Medications Dose Ordered Sig/Ady Route Start Time Stop Time Status Last Admin Dose Admin Ondansetron HCl 4 mg Q4HP PRN IV 01/17/24 21:15 Acetaminophen 650 mg Q6HP PRN PO 01/17/24 21:15 Nitroglycerin 0.4 mg Q5MINP PRN SL 01/17/24 21:15 Morphine Sulfate 2 mg Q30M PRN IV 01/17/24 21:15 Ceftriaxone Sodium 50 ml @ 100 mls/hr DAILY@09 IV 01/18/24 09:00 01/20/24 10:09 100 MLS/HR Aspirin 81 mg DAILY PO 01/19/24 10:00 01/20/24 10:09 81 MG Furosemide 40 mg BIDD IV 01/19/24 06:00 01/19/24 17:33 40 MG Dobutamine HCl/ Dextrose 250 ml @ 12.27 mls/ hr [id number] IV 01/20/24 12:00 laboratory and microbiology Laboratory Tests 01/20/24 05:45 Test 01/20/24 05:45 Range/Units Serum Glucose 85 74-106 mg/dL Problem List/Assessment/Plan Problems(with codes): (1) Encephalopathy (2) Non-STEMI (non-ST elevated myocardial infarction) Problem List/Assessment/Plan Acute on chronic decompensated HFrEF, NYHA Class IV Unspecified dilated cardiomyopathy with an EF of 10% NSTEMI, likely type 2 secondary to above Presence of single-lead AICD ([facility] 2022) Acute kidney injury Thrombocytopenia Hematuria Elevated LFTs Alcoholism The patient is still confused and obtunded at this point in time we will just continue aggressive medical therapy until patient reaches his baseline. I would recommend that he has regular follow-up in the outpatient set up with a his primary aging room hand. He was followed him it before had an ICD implanted back in 2022. In the meantime I would have a communicated with the family through social work therapist as patient is still with the alcohol withdrawal, I will continue aggressive medical therapy I will try to wean off dobutamine slowly to 1.25 mg per kg per minute until it stops in the next 24-48 hours. Daily creatinine level. And continuation of antihypertensive treatment as he is already on. Plan discussed with: Patient Date of Service: Jan 20, 2024 Billing Provider: ELADIO POOL MD Common Visit Codes: [id number] INP/OBS CARE(HIGH) ELADIO POOL MD Jan 20, 2024 11:35
[2024-01-20] MEDS: DOBUTamine 1000MCG/ML 250 ML IV SCH (12:37)
[2024-01-20] MEDS ORDERED: DOBUTamine 1000MCG/ML 250 ML IV SCH (15:15)
--- NOTE | 2024-01-20 18:41 | DVHPN2 ---
Subjective Confused Complains of pain in his legs Changes from previous H/P or p: Changes Objective Vitals Vital Signs Date Time Temp Pulse Resp B/P (MAP) Pulse Ox O2 Delivery O2 Flow Rate FiO2 01/20/24 17:43 122/94 01/20/24 17:00 97.8 72 19 98 97.8 01/20/24 08:00 Room Air* 0 21 Intake/Output Intake and Output 01/20/24 07:00 Intake Total 870 ml Output Total 2600 ml Balance -1730 ml Intake Oral 820 ml IV Total 50 ml Output Urine Total 2600 ml General Appearance: Alert, Oriented X3 Lungs: Clear to auscultation, Normal air movement Cardiovascular: Regular rate, Normal S2 Abdomen: Normal bowel sounds, Soft, No tenderness Extremities: No edema Medications Current Medications Medications Dose Ordered Sig/Ady Route Start Time Stop Time Status Last Admin Dose Admin Ondansetron HCl 4 mg Q4HP PRN IV 01/17/24 21:15 Acetaminophen 650 mg Q6HP PRN PO 01/17/24 21:15 Nitroglycerin 0.4 mg Q5MINP PRN SL 01/17/24 21:15 Morphine Sulfate 2 mg Q30M PRN IV 01/17/24 21:15 Ceftriaxone Sodium 50 ml @ 100 mls/hr DAILY@09 IV 01/18/24 09:00 01/20/24 10:09 100 MLS/HR Aspirin 81 mg DAILY PO 01/19/24 10:00 01/20/24 10:09 81 MG Furosemide 40 mg BIDD IV 01/19/24 06:00 01/20/24 17:43 40 MG Dobutamine HCl/ Dextrose 250 ml @ 0 mls/hr Q0M IV 01/20/24 15:15 01/21/24 15:14 Laboratory Results Laboratory Tests 01/20/24 05:45 Chemistry Test 01/20/24 05:45 Albumin 3.9 g/dL (3.2-4.8) Calcium Level 9.2 mg/dL (8.7-10.4) Magnesium Level 2.0 mg/dL (1.6-2.6) Phosphorus Level 5.2 mg/dL (2.4-5.1) H Total Protein 6.7 g/dL (5.7-8.2) Cardiac Markers Test 01/20/24 05:45 B-Type Natriuretic Peptide 2077.13 pg/mL (0-100) LFT Test 01/20/24 05:45 Alanine Aminotransferase (ALT) 148 U/L (7-40) H Alkaline Phosphatase 57 U/L (46-116) Aspartate Amino Transferase (AST) 561 U/L (13-40) H Total Bilirubin 1.1 mg/dL (0.2-1.0) H Urinalysis Test 01/17/24 20:52 Urine Color Light-orange (Yellow) Urine Clarity Turbid (Clear) H Urine pH 5.5 (5.0-9.0) Urine Specific [place] 1.018 (1.001-1.035) Urine Protein 2+ (Negative) H Urine Ketones Trace (Negative) Urine Blood 3+ /uL (Negative) H Urine Nitrite Negative (Negative) Urine Bilirubin Negative (Negative) Urine Urobilinogen Normal mg/dL (Negative) Urine Leukocyte Esterase Negative /uL (Negative) Urine RBC <1 /hpf (0 - 3) Urine WBC 2 /hpf (0 - 3) Urine Squamous Epithelial Cells None seen /hpf (<5) Urine Bacteria None seen /hpf (None Seen) Urine Mucus Few (None Seen) Urine Glucose Normal mg/dL (Normal) Microbiology Microbiology Date/Time Source Procedure Growth Status 01/17/24 22:47 Sputum Gram Stain - Final Resulted 01/17/24 22:47 Sputum Respiratory Culture - Preliminary Resulted Assessment/Plan Assessment/Plan Rhabdomyolysis Acute kidney injury due to vasomotor nephropathy Dilated cardiomyopathy, ejection fraction 10% Acute on chronic decompensated heart failure with reduced ejection fraction NSTEMI likely type 2 History of ICD Thrombocytopenia Hematuria Elevated liver function tests Alcoholism Homelessness Leukocytosis Lactic acidosis Plan 01/18/24: Continue IV fluids with normal saline Continue IV Lasix Echocardiogram showed ejection fraction 10% Monitor for alcohol withdrawal Cardiology consult Nephrology consult Dopamine drip ordered by Cardiology Aspirin 01/19/2024: Continue the current management IV fluids were discontinued by Nephrology Continue IV Lasix Rhabdomyolysis is improving, CK is coming down Troponin is better Echocardiogram showed ejection fraction 10% Monitor closely making line worker consult for homelessness 01/20/2024: ROBERTO: Creatinine is 3.4 Rhabdomyolysis: History of alcoholism Elevated liver functions Lactic acidosis NSTEMI type 2 Acute on chronic heart failure with a low ejection fraction 10%: Chest x-ray shows mild congestion Thrombocytopenia Continue IV Lasix Dobutamine drip Oxygen as needed Plan discussed with: Patient My Orders Orders - CLARISSA FRY MD Procedure Category Date Status Time Pt Request For Service PT 01/20/24 Logged 11:55 Date of Service: Jan 20, 2024 Billing Provider: CLARISSA FRY MD Common Visit Codes: [id number] INP/OBS CARE(HIGH) CLARISSA FRY MD Jan 20, 2024 18:41
[2024-01-21] VITALS (8 sets, daily range): BP systolic 102–110; BP diastolic 68–76; PULSE 59–78; RESP 16–20; TEMP 97.9–98.9; O2SAT 95–100
[2024-01-21 06:31] LABS: Basophils # (auto) 0.1 10 ^3/uL (0-0.2); Eosinophils # (auto) 0.1 10 ^3/uL (0-0.8); Hemoglobin 15.6 g/dL (13.5-17.5); Lymphocytes # (auto) 0.9 10 ^3/uL (0.4-5.4); White Blood Cell 8.5 10^3/uL (4.4-10.8)
[2024-01-21 06:38] LABS: Basophils % (auto) 0.8 % (0.0-2.0); Hematocrit 45.1 % (41.0-53.0); Lymphocytes % (auto) 11.1 % (10.0-50.0); Mean Corpuscular Hemoglobin 35.9 pg (28.0-32.0); Mean Corpuscular Hgb Conc. 34.6 g/dL (32.0-36.0); Mean Corpuscular Volume 103.5 fL (80.0-100.0); Monocytes # (auto) 1.3 10 ^3/uL (0-1.3); Monocytes % (auto) 14.9 % (0.0-12.0); Neutrophils # (auto) 6.2 10 ^3/uL (1.6-8.6); Neutrophils % (auto) 72.2 % (37.0-80.0); Platelet Count (auto) 97 10^3/uL (140-450); Red Blood Cells 4.36 10^6/uL (4.5-5.90); Red Cell Distribution Width 12.7 % (11.8-14.3)
[2024-01-21 06:48] LABS: Alanine Aminotransferase 135 U/L (7-40); Albumin 3.9 g/dL (3.2-4.8); Alkaline Phosphatase 58 U/L (46-116); Anion Gap 11 (5-15); Aspartate Aminotransferase 403 U/L (13-40); Calcium 9.5 mg/dL (8.7-10.4); Carbon Dioxide 25 mmol/L (20-31); Chloride 100 mmol/L (98-107); Glucose 91 mg/dL (74-106); Magnesium 2.2 mg/dL (1.6-2.6); Potassium 3.7 mmol/L (3.5-5.1); Sodium 136 mmol/L (136-145)
[2024-01-21 06:49] LABS: Bilirubin, Total 1.1 mg/dL (0.2-1.0)
[2024-01-21 06:51] LABS: Blood Urea Nitrogen 78 mg/dL (9-23)
[2024-01-21 06:59] LABS: Creatine Kinase IFCC 5149 U/L (46-171)
--- NOTE | 2024-01-21 11:24 | DVHPN2 ---
Progress Note Date Seen: Jan 21, 2024 Resident Creating Document: АНДРЕЙ HENRY RESIDENT Medical Necessity Reason Pt with a Central, PICC or Fol: No Subjective Review of Systems Patient is a 48-year-old male with past medical history of hypertension, presence of AICD brought to the hospital via EMS for chief complaint altered level of consciousness. 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 As per patient he did not recall how ended up in the hospital. Patient complaining of cough, denying any other symptoms including fever, chills, chest pain, shortness of breath, any other symptoms at this point. Patient is poor historian, not able to provide his medical history, what kind of medication he takes or any other information. Past Medical History Not able to obtain Past Surgical History Status post single lead AICD placement Family History: Patient reports no known family medical history. Family History Unable to obtain Social History Three beers per day, chronic alcohol consumption Former smoker, smoked for at least 10-12 years. Stopped three years ago. Patient denied use of illicit drug or tobacco. Patient seen and examined at bedside. Patient is feeling much better compared to yesterday. Patient has good urine output. 2300 mL output in last 24 hours. Continue to monitor urine output. Objective vital signs Vital Sign Date Time Temp Pulse Resp B/P (MAP) Pulse Ox O2 Delivery O2 Flow Rate FiO2 01/21/24 08:38 98.0 64 18 107/76 (86) 100 98.0 01/21/24 08:00 Room Air* 0 21 Total Intake and Output 01/20/24 01/20/24 01/21/24 15:00 23:00 07:00 Intake Total 50 ml 300 ml 800 ml Output Total 950 ml 1350 ml Balance 50 ml -650 ml -550 ml medications Current Medications Medications Dose Ordered Sig/Ady Route Start Time Stop Time Status Last Admin Dose Admin Ondansetron HCl 4 mg Q4HP PRN IV 01/17/24 21:15 Acetaminophen 650 mg Q6HP PRN PO 01/17/24 21:15 Nitroglycerin 0.4 mg Q5MINP PRN SL 01/17/24 21:15 Morphine Sulfate 2 mg Q30M PRN IV 01/17/24 21:15 Aspirin 81 mg DAILY PO 01/19/24 10:00 01/21/24 09:31 81 MG Furosemide 40 mg BIDD IV 01/19/24 06:00 01/21/24 06:02 40 MG Dobutamine HCl/ Dextrose 250 ml @ 0 mls/hr Q0M IV 01/20/24 15:15 01/21/24 15:14 Examination General Appearance: Well developed. Well nourished. NAD Head Exam: Normal inspection Neck Exam: Normal inspection. Non-tender. Normal alignment Pulmonary/Respiratory: Chest non-tender. Clear bilateral breath sounds Cardiovascular/Chest: Regular rate and rhythm. No murmurs. No JVD. Peripheral Pulses: 2+ Radial (R). 2+ Radial (L). 2+ Pedal (R). 2+ Pedal (L) Abdominal Exam: Normal bowel sounds. Soft. Nontender. No hepatospenomegaly. No masses, scrotal swelling Ankle Exam: Negative ankle edema Lower extremities: Negative lower extremity edema Neuro/Mental Status: A&O x2. laboratory and microbiology Laboratory Tests 01/21/24 05:32 Test 01/21/24 05:32 Range/Units Serum Glucose 91 74-106 mg/dL Microbiology Date/Time Source Procedure Growth Status 01/17/24 22:47 Sputum Gram Stain - Final Resulted 01/17/24 22:47 Sputum Respiratory Culture - Preliminary Resulted Problem List/Assessment/Plan Problem List/Assessment/Plan ROBERTO likely hemodynamically mediated in setting of cardiorenal syndrome High ck sec to Myocardial ischemia /NSTEMI Acute on chronic HFrEF EF 10 NSTEMI type 2 likely due to above Leukocytosis History of alcohol abuse Elevated liver enzymes Lactic acidosis Plan/recommendation Dr. Irving: -creatinine trending down, increased urine output, improving GFR. -continue Lasix 40 mg IV b.i.d.: Improved urine output, 2300 mL on last 24 hour. -echocardiogram showed 10% ejection fraction with global hypokinesis -maintain strict I&O, avoid nephrotoxic medication. -urinalysis: Negative for nitrites, leukocytosis, squamous epithelial cells. Urine protein 2+ -UDS negative for serum alcohol, drugs. -Ordered urine sodium, creatinine, total protein, serum phosphorus.: Still Pending -cardiology consultation for HFrEF: On dobutamine drip. Addendum Patient seen and examined, plan discussed with resident. Agree with above, we will follow closely Plan discussed with: Patient, Other (RN) АНДРЕЙ HENRY Jan 21, 2024 11:23 SHAWNEE IRVING MD Jan 21, 2024 14:41
--- NOTE | 2024-01-21 13:45 | DVHPN2 ---
Consult Progress Note Date Seen: Jan 21, 2024 Subjective Other Systems: The patient remains in normal sinus rhythm on continuous school bus monitor. Patient remains on dobutamine drip. Objective vital signs Vital Sign Date Time Temp Pulse Resp B/P (MAP) Pulse Ox O2 Delivery O2 Flow Rate FiO2 01/21/24 13:00 97.9 63 18 102/72 (82) 98 97.9 01/21/24 08:00 Room Air* 0 21 Total Intake and Output 01/20/24 01/20/24 01/21/24 14:59 22:59 06:59 Intake Total 50 ml 300 ml 800 ml Output Total 950 ml 1350 ml Balance 50 ml -650 ml -550 ml medications Current Medications Medications Dose Ordered Sig/Ady Route Start Time Stop Time Status Last Admin Dose Admin Ondansetron HCl 4 mg Q4HP PRN IV 01/17/24 21:15 Acetaminophen 650 mg Q6HP PRN PO 01/17/24 21:15 Nitroglycerin 0.4 mg Q5MINP PRN SL 01/17/24 21:15 Morphine Sulfate 2 mg Q30M PRN IV 01/17/24 21:15 Aspirin 81 mg DAILY PO 01/19/24 10:00 01/21/24 09:31 81 MG Furosemide 40 mg BIDD IV 01/19/24 06:00 01/21/24 06:02 40 MG Dobutamine HCl/ Dextrose 250 ml @ 0 mls/hr Q0M IV 01/20/24 15:15 01/21/24 15:14 Examination: GENERAL:Abnormal (Generalized weakness), LUNGS:Normal, CVS:Normal, NEURO:Normal laboratory and microbiology Laboratory Tests 01/21/24 05:32 Test 01/21/24 05:32 Range/Units Serum Glucose 91 74-106 mg/dL Problem List/Assessment/Plan Problem List/Assessment/Plan Acute on chronic decompensated HFrEF, NYHA Class IV Unspecified dilated cardiomyopathy with an EF of 10% Leukocytosis with questionable sepsis/rhabdomyolysis NSTEMI, likely type 2 secondary to above Presence of single-lead AICD ([employer] [facility] 2022) Mitral valve regurgitation, moderate degree Tricuspid valve regurgitation, mild to moderate degree Acute kidney injury Thrombocytopenia Hematuria Elevated LFTs Alcoholism Plan/Recommendation (Dr. Pool): * Echocardiogram reveals EF 10% with severely dilated left ventricle. * Preload and afterload reduction. Continue dobutamine drip * Strict I&Os. Daily weight. Maintain fluid restriction * Initiate GDMT for CHF when appropriate * Hold given ROBERTO and inotropic agent ensuing * DVT/VTE prophylaxis: SCDs Patient seen and examined at bedside with . Consider goals of care with the patient and family. Thank you for allowing us to participate in this patient's care. Please call if you have any questions or concerns. This medical document was created using an electronic medical record system with voice recognition software and computerized dictation system. Although this document has been carefully reviewed, there might still be some phonetic and typographical errors. Occasional wrong-word or ``sound-alike substitutions may have occurred due to the inherent limitations of voice recognition software. These areas are purely typographical due to imperfections of the software programs and do not reflect any compromise in the patient's medical care. Please read the chart carefully and recognize, using context, where these substitutions have occurred Plan discussed with: Patient Date of Service: Jan 21, 2024 Billing Provider: ELADIO POOL MD Cardiology Common Codes: [id number] HOSP CARE(ROSALIO Carvajal [facility] Jan 21, 2024 13:45
--- NOTE | 2024-01-21 15:34 | DVHPN2 ---
Subjective More alert No complaints No edema Changes from previous H/P or p: Changes Objective Vitals Vital Signs Date Time Temp Pulse Resp B/P (MAP) Pulse Ox O2 Delivery O2 Flow Rate FiO2 01/21/24 13:00 97.9 63 18 102/72 (82) 98 97.9 01/21/24 08:00 Room Air* 0 21 Intake/Output Intake and Output 01/21/24 07:00 Intake Total 1150 ml Output Total 2300 ml Balance -1150 ml Intake Oral 1100 ml IV Total 50 ml Output Urine Total 2300 ml General Appearance: Alert, Oriented X3 Lungs: Clear to auscultation, Normal air movement Cardiovascular: Regular rate, Normal S2 Abdomen: Normal bowel sounds, Soft, No tenderness Extremities: No edema Medications Current Medications Medications Dose Ordered Sig/Ady Route Start Time Stop Time Status Last Admin Dose Admin Ondansetron HCl 4 mg Q4HP PRN IV 01/17/24 21:15 Acetaminophen 650 mg Q6HP PRN PO 01/17/24 21:15 Nitroglycerin 0.4 mg Q5MINP PRN SL 01/17/24 21:15 Morphine Sulfate 2 mg Q30M PRN IV 01/17/24 21:15 Aspirin 81 mg DAILY PO 01/19/24 10:00 01/21/24 09:31 81 MG Furosemide 40 mg BIDD IV 01/19/24 06:00 01/21/24 06:02 40 MG Laboratory Results Laboratory Tests 01/21/24 05:32 Chemistry Test 01/21/24 05:32 Albumin 3.9 g/dL (3.2-4.8) Calcium Level 9.5 mg/dL (8.7-10.4) Magnesium Level 2.2 mg/dL (1.6-2.6) Total Protein 7.0 g/dL (5.7-8.2) LFT Test 01/21/24 05:32 Alanine Aminotransferase (ALT) 135 U/L (7-40) H Alkaline Phosphatase 58 U/L (46-116) Aspartate Amino Transferase (AST) 403 U/L (13-40) H Total Bilirubin 1.1 mg/dL (0.2-1.0) H Urinalysis Test 01/17/24 20:52 Urine Color Light-orange (Yellow) Urine Clarity Turbid (Clear) H Urine pH 5.5 (5.0-9.0) Urine Specific [place] 1.018 (1.001-1.035) Urine Protein 2+ (Negative) H Urine Ketones Trace (Negative) Urine Blood 3+ /uL (Negative) H Urine Nitrite Negative (Negative) Urine Bilirubin Negative (Negative) Urine Urobilinogen Normal mg/dL (Negative) Urine Leukocyte Esterase Negative /uL (Negative) Urine RBC <1 /hpf (0 - 3) Urine WBC 2 /hpf (0 - 3) Urine Squamous Epithelial Cells None seen /hpf (<5) Urine Bacteria None seen /hpf (None Seen) Urine Mucus Few (None Seen) Urine Glucose Normal mg/dL (Normal) Microbiology Microbiology Date/Time Source Procedure Growth Status 01/17/24 22:47 Sputum Gram Stain - Final Resulted 01/17/24 22:47 Sputum Respiratory Culture - Preliminary Resulted Assessment/Plan Assessment/Plan Rhabdomyolysis Acute kidney injury due to vasomotor nephropathy Dilated cardiomyopathy, ejection fraction 10% Acute on chronic decompensated heart failure with reduced ejection fraction NSTEMI likely type 2 History of ICD Thrombocytopenia Hematuria Elevated liver function tests Alcoholism Homelessness Leukocytosis Lactic acidosis Plan 01/18/24: Continue IV fluids with normal saline Continue IV Lasix Echocardiogram showed ejection fraction 10% Monitor for alcohol withdrawal Cardiology consult Nephrology consult Dopamine drip ordered by Cardiology Aspirin 01/19/2024: Continue the current management IV fluids were discontinued by Nephrology Continue IV Lasix Rhabdomyolysis is improving, CK is coming down Troponin is better Echocardiogram showed ejection fraction 10% Monitor closely dry cure worker consult for homelessness 01/20/2024: ROBERTO: Creatinine is 3.4 Rhabdomyolysis: History of alcoholism Elevated liver functions Lactic acidosis NSTEMI type 2 Acute on chronic heart failure with a low ejection fraction 10%: Chest x-ray shows mild congestion Thrombocytopenia Continue IV Lasix Dobutamine drip Oxygen as needed 01/21/2024: Discontinue the Seaman Physical therapy Out of bed as tolerated Continue to monitor Continue to watch the liver and kidney functions The patient is homeless Does not know what where he is going to go when he is discharged Plan discussed with: Patient My Orders Orders - CLARISSA FRY MD Procedure Category Date Status Time Discontinue Seaman ESTEFANY 01/21/24 In Process Catheter 15:20 Date of Service: Jan 21, 2024 Billing Provider: CLARISSA FRY MD Common Visit Codes: [id number] INP/OBS CARE(HIGH) CLARISSA FRY MD Jan 21, 2024 15:34
[2024-01-22] VITALS (8 sets, daily range): BP systolic 92–120; BP diastolic 61–67; PULSE 62–70; RESP 16–18; TEMP 97.8–98.1; O2SAT 92–99
[2024-01-22 07:03] LABS: Alanine Aminotransferase 125 U/L (7-40); Albumin 4.2 g/dL (3.2-4.8); Alkaline Phosphatase 57 U/L (46-116); Anion Gap 14 (5-15); Aspartate Aminotransferase 298 U/L (13-40); BUN/Creatinine Ratio 34.1 (10.0-20.0); Bilirubin, Total 1.3 mg/dL (0.2-1.0); Calcium 9.8 mg/dL (8.7-10.4); Carbon Dioxide 25 mmol/L (20-31); Chloride 98 mmol/L (98-107); Glucose 92 mg/dL (74-106); Magnesium 2.1 mg/dL (1.6-2.6); Potassium 3.2 mmol/L (3.5-5.1); Sodium 137 mmol/L (136-145); Total Protein 7.3 g/dL (5.7-8.2)
[2024-01-22 07:07] LABS: Blood Urea Nitrogen 85 mg/dL (9-23)
[2024-01-22] MEDS: POTASSIUM EFFERVESENT TAB 25 MEQ PO ONE (10:26)
--- NOTE | 2024-01-22 11:32 | DVHPN2 ---
Subjective No new complaints No edema Creatinine is better at 2.4 Changes from previous H/P or p: Changes Objective Vitals Vital Signs Date Time Temp Pulse Resp B/P (MAP) Pulse Ox O2 Delivery O2 Flow Rate FiO2 01/22/24 09:00 97.9 62 18 107/67 (80) 96 97.9 01/21/24 20:00 Room Air* 0 21 Intake/Output Intake and Output 01/22/24 07:00 Intake Total 1200 ml Output Total 875 ml Balance 325 ml Intake Oral 1200 ml Output Urine Total 875 ml # Voids 2 General Appearance: Alert, Oriented X3 Lungs: Clear to auscultation, Normal air movement Cardiovascular: Regular rate, Normal S2 Abdomen: Normal bowel sounds, Soft, No tenderness Extremities: No edema Medications Current Medications Medications Dose Ordered Sig/Ady Route Start Time Stop Time Status Last Admin Dose Admin Ondansetron HCl 4 mg Q4HP PRN IV 01/17/24 21:15 Acetaminophen 650 mg Q6HP PRN PO 01/17/24 21:15 Nitroglycerin 0.4 mg Q5MINP PRN SL 01/17/24 21:15 Morphine Sulfate 2 mg Q30M PRN IV 01/17/24 21:15 Aspirin 81 mg DAILY PO 01/19/24 10:00 01/22/24 10:26 81 MG Furosemide 40 mg BIDD IV 01/19/24 06:00 01/21/24 18:08 40 MG Laboratory Results Laboratory Tests 01/21/24 05:32 01/22/24 05:59 Chemistry Test 01/22/24 05:59 Albumin 4.2 g/dL (3.2-4.8) Calcium Level 9.8 mg/dL (8.7-10.4) Magnesium Level 2.1 mg/dL (1.6-2.6) Total Protein 7.3 g/dL (5.7-8.2) LFT Test 01/22/24 05:59 Alanine Aminotransferase (ALT) 125 U/L (7-40) H Alkaline Phosphatase 57 U/L (46-116) Aspartate Amino Transferase (AST) 298 U/L (13-40) H Total Bilirubin 1.3 mg/dL (0.2-1.0) H Urinalysis Test 01/17/24 20:52 Urine Color Light-orange (Yellow) Urine Clarity Turbid (Clear) H Urine pH 5.5 (5.0-9.0) Urine Specific [place] 1.018 (1.001-1.035) Urine Protein 2+ (Negative) H Urine Ketones Trace (Negative) Urine Blood 3+ /uL (Negative) H Urine Nitrite Negative (Negative) Urine Bilirubin Negative (Negative) Urine Urobilinogen Normal mg/dL (Negative) Urine Leukocyte Esterase Negative /uL (Negative) Urine RBC <1 /hpf (0 - 3) Urine WBC 2 /hpf (0 - 3) Urine Squamous Epithelial Cells None seen /hpf (<5) Urine Bacteria None seen /hpf (None Seen) Urine Mucus Few (None Seen) Urine Glucose Normal mg/dL (Normal) Microbiology Microbiology Date/Time Source Procedure Growth Status 01/17/24 22:47 Sputum Gram Stain - Final Resulted 01/17/24 22:47 Sputum Respiratory Culture - Preliminary Resulted Assessment/Plan Assessment/Plan Rhabdomyolysis Acute kidney injury due to vasomotor nephropathy Dilated cardiomyopathy, ejection fraction 10% Acute on chronic decompensated heart failure with reduced ejection fraction NSTEMI likely type 2 History of ICD Thrombocytopenia Hematuria Elevated liver function tests Alcoholism Homelessness Leukocytosis Lactic acidosis Plan 01/18/24: Continue IV fluids with normal saline Continue IV Lasix Echocardiogram showed ejection fraction 10% Monitor for alcohol withdrawal Cardiology consult Nephrology consult Dopamine drip ordered by Cardiology Aspirin 01/19/2024: Continue the current management IV fluids were discontinued by Nephrology Continue IV Lasix Rhabdomyolysis is improving, CK is coming down Troponin is better Echocardiogram showed ejection fraction 10% Monitor closely insemination worker consult for homelessness 01/20/2024: ORBERTO: Creatinine is 3.4 Rhabdomyolysis: History of alcoholism Elevated liver functions Lactic acidosis NSTEMI type 2 Acute on chronic heart failure with a low ejection fraction 10%: Chest x-ray shows mild congestion Thrombocytopenia Continue IV Lasix Dobutamine drip Oxygen as needed 01/21/2024: Discontinue the [facility] Physical therapy Out of bed as tolerated Continue to monitor Continue to watch the liver and kidney functions The patient is homeless Does not know what where he is going to go when he is discharged 01/22/2024: Continue current management Rhabdomyolysis is improving Kidney function is better Continue physical therapy Check the CK again in the morning Plan discussed with: Patient My Orders Orders - CLARISSA FRY MD Procedure Category Date Status Time Discontinue Seaman ESTEFANY 11/21/24 In Process Catheter 15:20 Date of Service: Jan 22, 2024 Billing Provider: CLARISSA FRY MD Common Visit Codes: [id number] INP/OBS CARE(HIGH) CLARISSA FRY MD Jan 22, 2024 11:32
--- NOTE | 2024-01-22 13:12 | DVHPN2 ---
Progress Note Date Seen: Jan 22, 2024 Resident Creating Document: АНДРЕЙ HENRY RESIDENT Medical Necessity Reason Pt with a Central, PICC or Fol: No Subjective Review of Systems Patient is a 48-year-old male with past medical history of hypertension, presence of AICD brought to the hospital via EMS for chief complaint altered level of consciousness. 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 As per patient he did not recall how ended up in the hospital. Patient complaining of cough, denying any other symptoms including fever, chills, chest pain, shortness of breath, any other symptoms at this point. Patient is poor historian, not able to provide his medical history, what kind of medication he takes or any other information. Past Medical History Not able to obtain Past Surgical History Status post single lead AICD placement Family History: Patient reports no known family medical history. Family History Unable to obtain Social History Three beers per day, chronic alcohol consumption Former smoker, smoked for at least 10-12 years. Stopped three years ago. Patient denied use of illicit drug or tobacco. Patient seen and examined at bedside. No new complains. Objective vital signs Vital Sign Date Time Temp Pulse Resp B/P (MAP) Pulse Ox O2 Delivery O2 Flow Rate FiO2 01/22/24 09:00 97.9 62 18 107/67 (80) 96 97.9 01/21/24 20:00 Room Air* 0 21 Total Intake and Output 01/21/24 01/21/24 01/22/24 15:00 23:00 07:00 Intake Total 620 ml 580 ml Output Total 875 ml Balance -255 ml 580 ml medications Current Medications Medications Dose Ordered Sig/Ady Route Start Time Stop Time Status Last Admin Dose Admin Ondansetron HCl 4 mg Q4HP PRN IV 01/17/24 21:15 Acetaminophen 650 mg Q6HP PRN PO 01/17/24 21:15 Nitroglycerin 0.4 mg Q5MINP PRN SL 01/17/24 21:15 Morphine Sulfate 2 mg Q30M PRN IV 01/17/24 21:15 Aspirin 81 mg DAILY PO 01/19/24 10:00 01/22/24 10:26 81 MG Furosemide 40 mg BIDD IV 01/19/24 06:00 01/21/24 18:08 40 MG Examination General Appearance: Well developed. Well nourished. NAD Head Exam: Normal inspection Neck Exam: Normal inspection. Non-tender. Normal alignment Pulmonary/Respiratory: Chest non-tender. Clear bilateral breath sounds Cardiovascular/Chest: Regular rate and rhythm. No murmurs. No JVD. Peripheral Pulses: 2+ Radial (R). 2+ Radial (L). 2+ Pedal (R). 2+ Pedal (L) Abdominal Exam: Normal bowel sounds. Soft. Nontender. No hepatospenomegaly. No masses, scrotal swelling Ankle Exam: Negative ankle edema Lower extremities: Negative lower extremity edema Neuro/Mental Status: A&O x2. laboratory and microbiology Laboratory Tests 01/22/24 05:59 01/21/24 05:32 Test 01/22/24 05:59 Range/Units Serum Glucose 92 74-106 mg/dL Microbiology Date/Time Source Procedure Growth Status 01/17/24 22:47 Sputum Gram Stain - Final Resulted 01/17/24 22:47 Sputum Respiratory Culture - Preliminary Resulted Problem List/Assessment/Plan Problem List/Assessment/Plan ROBERTO likely hemodynamically mediated in setting of cardiorenal syndrome High ck sec to Myocardial ischemia /NSTEMI Acute on chronic HFrEF EF 10 NSTEMI type 2 likely due to above Leukocytosis History of alcohol abuse Elevated liver enzymes Lactic acidosis Plan/recommendation Dr. Snow: -creatinine trending down, increased urine output, improving GFR. -continue Lasix 40 mg IV b.i.d.: Improved urine output, 2300 mL on last 24 hour. -echocardiogram showed 10% ejection fraction with global hypokinesis -maintain strict I&O, avoid nephrotoxic medication. -urinalysis: Negative for nitrites, leukocytosis, squamous epithelial cells. Urine protein 2+ -UDS negative for serum alcohol, drugs. -Ordered urine sodium, creatinine, total protein, serum phosphorus.: Still Pending -cardiology consultation for HFrEF: On dobutamine drip. -We will continue follow up. Plan discussed with: Patient, Other (RN) АНДРЕЙ HENRY RESIDENT Jan 22, 2024 13:12
--- NOTE | 2024-01-22 16:59 | DVHPN2 ---
Consult Progress Note Date Seen: Jan 22, 2024 Subjective Patient reports: No new complaints Other Systems: Patient remains in normal sinus rhythm on continuous conveyor monitor Objective vital signs Vital Sign Date Time Temp Pulse Resp B/P (MAP) Pulse Ox O2 Delivery O2 Flow Rate FiO2 01/22/24 16:53 98.1 70 18 120/61 (80) 95 98.1 01/21/24 20:00 Room Air* 0 21 Total Intake and Output 01/21/24 01/21/24 01/22/24 15:00 23:00 07:00 Intake Total 620 ml 580 ml Output Total 875 ml Balance -255 ml 580 ml medications Current Medications Medications Dose Ordered Sig/Ady Route Start Time Stop Time Status Last Admin Dose Admin Ondansetron HCl 4 mg Q4HP PRN IV 01/17/24 21:15 Acetaminophen 650 mg Q6HP PRN PO 01/17/24 21:15 Nitroglycerin 0.4 mg Q5MINP PRN SL 01/17/24 21:15 Morphine Sulfate 2 mg Q30M PRN IV 01/17/24 21:15 Aspirin 81 mg DAILY PO 01/19/24 10:00 01/22/24 10:26 81 MG Furosemide 40 mg BIDD IV 01/19/24 06:00 01/21/24 18:08 40 MG Examination: GENERAL:Normal, LUNGS:Normal, CVS:Normal, NEURO:Normal laboratory and microbiology Laboratory Tests 01/22/24 05:59 01/21/24 05:32 Test 01/22/24 05:59 Range/Units Serum Glucose 92 74-106 mg/dL Problem List/Assessment/Plan Problem List/Assessment/Plan Acute on chronic decompensated HFrEF, NYHA Class IV Unspecified dilated cardiomyopathy with an EF of 10% Leukocytosis with questionable sepsis/rhabdomyolysis NSTEMI, likely type 2 secondary to above Presence of single-lead AICD ([facility] 2022) Mitral valve regurgitation, moderate degree Tricuspid valve regurgitation, mild to moderate degree Acute kidney injury Thrombocytopenia Hematuria Elevated LFTs Alcoholism Plan/Recommendation (Dr. Pool): * Echocardiogram reveals EF 10% with severely dilated left ventricle. * Preload and afterload reduction. D/C dobutamine * Initiate low dose beta dale as tolerated * Continue diuresis * Strict I&Os. Daily weight. Maintain fluid restriction * Initiate GDMT for CHF when appropriate * Hold given ROBERTO * DVT/VTE prophylaxis: SCDs Consider goals of care with the patient and family. Thank you for allowing us to participate in this patient's care. Please call if you have any questions or concerns. This medical document was created using an electronic medical record system with voice recognition software and computerized dictation system. Although this document has been carefully reviewed, there might still be some phonetic and typographical errors. Occasional wrong-word or ``sound-alike substitutions may have occurred due to the inherent limitations of voice recognition software. These areas are purely typographical due to imperfections of the software programs and do not reflect any compromise in the patient's medical care. Please read the chart carefully and recognize, using context, where these substitutions have occurred Plan discussed with: Patient Dietary Evaluation Review Comments: Continue current plan of care Expected Outcomes/Goals: F/U in 3-5 days Date of Service: Jan 22, 2024 Billing Provider: ELADIO POOL MD Cardiology Common Codes: [id number] INP/OBS CARE(Mod) ROSALIO SCHNEIDER ENROLLMENT MANAGEMENT VICE PRESIDENT Jan 22, 2024 16:59
[2024-01-22] MEDS: METOPROLOL TARTRATE 25 MG TAB PO SCH (21:14)
[2024-01-23] VITALS (7 sets, daily range): BP systolic 90–106; BP diastolic 46–61; PULSE 53–61; RESP 16–17; TEMP 97.6–98.5; O2SAT 93–100
[2024-01-23 06:14] LABS: Chloride 99 mmol/L (98-107); Potassium 3.5 mmol/L (3.5-5.1); Sodium 138 mmol/L (136-145)
[2024-01-23 06:15] LABS: Anion Gap 11 (5-15); Calcium 9.9 mg/dL (8.7-10.4); Carbon Dioxide 28 mmol/L (20-31)
[2024-01-23 06:21] LABS: BUN/Creatinine Ratio 38.3 (10.0-20.0); Glucose 91 mg/dL (74-106)
[2024-01-23 06:32] LABS: Creatine Kinase IFCC 1771 U/L (46-171)
[2024-01-23 06:51] LABS: Blood Urea Nitrogen 92 mg/dL (9-23)
--- NOTE | 2024-01-23 13:30 | DVHPN2 ---
Subjective No new complaints No edema He is feeling better More alert and oriented Changes from previous H/P or p: Changes Objective Vitals Vital Signs Date Time Temp Pulse Resp B/P (MAP) Pulse Ox O2 Delivery O2 Flow Rate FiO2 01/23/24 09:55 60 92/59 01/23/24 09:00 97.6 16 100 97.6 01/22/24 20:00 Room Air* 0 21 Intake/Output Intake and Output 01/23/24 07:00 Intake Total 1400 ml Output Total 2225 ml Balance -825 ml Intake Oral 1400 ml Output Urine Total 2225 ml General Appearance: Alert, Oriented X3 Lungs: Clear to auscultation, Normal air movement Cardiovascular: Regular rate, Normal S2 Abdomen: Normal bowel sounds, Soft, No tenderness Extremities: No edema Medications Current Medications Medications Dose Ordered Sig/Ady Route Start Time Stop Time Status Last Admin Dose Admin Ondansetron HCl 4 mg Q4HP PRN IV 01/17/24 21:15 Acetaminophen 650 mg Q6HP PRN PO 01/17/24 21:15 Nitroglycerin 0.4 mg Q5MINP PRN SL 01/17/24 21:15 Morphine Sulfate 2 mg Q30M PRN IV 01/17/24 21:15 Aspirin 81 mg DAILY PO 01/19/24 10:00 01/23/24 09:59 81 MG Furosemide 40 mg BIDD IV 01/19/24 06:00 01/23/24 05:46 40 MG Metoprolol Tartrate 12.5 mg BID PO 01/22/24 22:00 Laboratory Results Laboratory Tests 01/21/24 05:32 01/23/24 05:30 Chemistry Test 01/23/24 05:30 Calcium Level 9.9 mg/dL (8.7-10.4) Cardiac Markers Test 01/23/24 05:30 B-Type Natriuretic Peptide 490.61 pg/mL (0-100) Urinalysis Test 01/17/24 20:52 Urine Color Light-orange (Yellow) Urine Clarity Turbid (Clear) H Urine pH 5.5 (5.0-9.0) Urine Specific [place] 1.018 (1.001-1.035) Urine Protein 2+ (Negative) H Urine Ketones Trace (Negative) Urine Blood 3+ /uL (Negative) H Urine Nitrite Negative (Negative) Urine Bilirubin Negative (Negative) Urine Urobilinogen Normal mg/dL (Negative) Urine Leukocyte Esterase Negative /uL (Negative) Urine RBC <1 /hpf (0 - 3) Urine WBC 2 /hpf (0 - 3) Urine Squamous Epithelial Cells None seen /hpf (<5) Urine Bacteria None seen /hpf (None Seen) Urine Mucus Few (None Seen) Urine Glucose Normal mg/dL (Normal) Microbiology Microbiology Date/Time Source Procedure Growth Status 01/17/24 22:47 Sputum Gram Stain - Final Complete 01/17/24 22:47 Respiratory Culture - Final Streptococcus pneumoniae Complete Assessment/Plan Assessment/Plan Rhabdomyolysis Acute kidney injury due to vasomotor nephropathy Dilated cardiomyopathy, ejection fraction 10% Acute on chronic decompensated heart failure with reduced ejection fraction NSTEMI likely type 2 History of ICD Thrombocytopenia Hematuria Elevated liver function tests Alcoholism Homelessness Leukocytosis Lactic acidosis Plan 01/18/24: Continue IV fluids with normal saline Continue IV Lasix Echocardiogram showed ejection fraction 10% Monitor for alcohol withdrawal Cardiology consult Nephrology consult Dopamine drip ordered by Cardiology Aspirin 01/19/2024: Continue the current management IV fluids were discontinued by Nephrology Continue IV Lasix Rhabdomyolysis is improving, CK is coming down Troponin is better Echocardiogram showed ejection fraction 10% Monitor closely yarn dry room worker consult for homelessness 01/20/2024: ROBERTO: Creatinine is 3.4 Rhabdomyolysis: History of alcoholism Elevated liver functions Lactic acidosis NSTEMI type 2 Acute on chronic heart failure with a low ejection fraction 10%: Chest x-ray shows mild congestion Thrombocytopenia Continue IV Lasix Dobutamine drip Oxygen as needed 01/21/2024: Discontinue the [facility] Physical therapy Out of bed as tolerated Continue to monitor Continue to watch the liver and kidney functions The patient is homeless Does not know what where he is going to go when he is discharged 01/22/2024: Continue current management Rhabdomyolysis is improving Kidney function is better Continue physical therapy Check the CK again in the morning 01/23/2024: Continue current management Continue physical therapy The patient is still does not know where he is going to go when he is discharged I encouraged him to try to contact his friends or family so we can arrange his discharge possibly in 1-2 days Plan discussed with: Patient Date of Service: Jan 23, 2024 Billing Provider: CLARISSA FRY MD Common Visit Codes: [id number] INP/OBS CARE(HIGH) CLARISSA FRY MD Jan 23, 2024 13:30
--- NOTE | 2024-01-23 13:33 | DVHPN2 ---
Progress Note - Dictate Date Seen: Jan 23, 2024 Medical Necessity Reason Pt with a Central, PICC or Fol: No Subjective Denies shortness of breath vital signs Vital Sign Date Time Temp Pulse Resp B/P (MAP) Pulse Ox O2 Delivery O2 Flow Rate FiO2 01/23/24 09:55 60 92/59 01/23/24 09:00 97.6 16 100 97.6 01/22/24 20:00 Room Air* 0 21 Total Intake and Output 01/22/24 01/22/24 01/23/24 15:00 23:00 07:00 Intake Total 800 ml 600 ml Output Total 1800 ml 425 ml Balance -1000 ml 175 ml medications Current Medications Medications Dose Ordered Sig/Ady Route Start Time Stop Time Status Last Admin Dose Admin Ondansetron HCl 4 mg Q4HP PRN IV 01/17/24 21:15 Acetaminophen 650 mg Q6HP PRN PO 01/17/24 21:15 Nitroglycerin 0.4 mg Q5MINP PRN SL 01/17/24 21:15 Morphine Sulfate 2 mg Q30M PRN IV 01/17/24 21:15 Aspirin 81 mg DAILY PO 01/19/24 10:00 01/23/24 09:59 81 MG Furosemide 40 mg BIDD IV 01/19/24 06:00 01/23/24 05:46 40 MG Metoprolol Tartrate 12.5 mg BID PO 01/22/24 22:00 objective Gen: nad heent: nc/at, mmm lungs: cta anteriorly cvs: no rub abd: soft, bowel sounds audible ext: no edema skin: no rash neuro: alert and oriented laboratory and microbiology Laboratory Tests 01/23/24 05:30 01/21/24 05:32 Test 01/23/24 05:30 Range/Units Serum Glucose 91 74-106 mg/dL Assessment/Plan Problem List/Assessment/Plan ROBERTO likely hemodynamically mediated in setting of cardiorenal syndrome High ck sec to Myocardial ischemia /NSTEMI Acute on chronic HFrEF EF 10 NSTEMI type 2 likely due to above Leukocytosis History of alcohol abuse Elevated liver enzymes Lactic acidosis Plan/recommendation - slight increase in azotemia, stable creatinine however - may consider down titration of loop diuretic, targeting even fluid balance. - we will continue to follow Dietary Evaluation Review Comments: Continue current plan of care Expected Outcomes/Goals: F/U in 3-5 days Plan discussed with: Other STEW CARBAJAL MD Jan 23, 2024 13:33
--- NOTE | 2024-01-23 17:07 | DVHPN2 ---
Consult Progress Note Date Seen: Jan 23, 2024 Subjective Other Systems: Patient is sleeping at time of assessment. Patient in normal sinus rhythm on case monitor. Objective vital signs Vital Sign Date Time Temp Pulse Resp B/P (MAP) Pulse Ox O2 Delivery O2 Flow Rate FiO2 01/23/24 16:46 98.5 53 16 106/46 (66) 95 98.5 01/23/24 08:00 Room Air* 0 21 Total Intake and Output 01/22/24 01/22/24 01/23/24 15:00 23:00 07:00 Intake Total 800 ml 600 ml Output Total 1800 ml 425 ml Balance -1000 ml 175 ml medications Current Medications Medications Dose Ordered Sig/Ady Route Start Time Stop Time Status Last Admin Dose Admin Ondansetron HCl 4 mg Q4HP PRN IV 01/17/24 21:15 Acetaminophen 650 mg Q6HP PRN PO 01/17/24 21:15 Nitroglycerin 0.4 mg Q5MINP PRN SL 01/17/24 21:15 Morphine Sulfate 2 mg Q30M PRN IV 01/17/24 21:15 Aspirin 81 mg DAILY PO 01/19/24 10:00 01/23/24 09:59 81 MG Furosemide 40 mg BIDD IV 01/19/24 06:00 01/23/24 05:46 40 MG Metoprolol Tartrate 12.5 mg BID PO 01/22/24 22:00 Examination: GENERAL:Normal, LUNGS:Normal, CVS:Normal laboratory and microbiology Laboratory Tests 01/23/24 05:30 01/21/24 05:32 Test 01/23/24 05:30 Range/Units Serum Glucose 91 74-106 mg/dL Problem List/Assessment/Plan Problem List/Assessment/Plan Acute on chronic decompensated HFrEF, NYHA Class IV Unspecified dilated cardiomyopathy with an EF of 10% Leukocytosis with questionable sepsis/rhabdomyolysis NSTEMI, likely type 2 secondary to above Presence of single-lead AICD ([facility] 2022) Mitral valve regurgitation, moderate degree Tricuspid valve regurgitation, mild to moderate degree Acute kidney injury Thrombocytopenia Hematuria Elevated LFTs Alcoholism Plan/Recommendation (Dr. Pool): * Echocardiogram reveals EF 10% with severely dilated left ventricle. * Preload and afterload reduction. D/C dobutamine * Initiate low dose beta dale as tolerated * Continue diuresis * Strict I&Os. Daily weight. Maintain fluid restriction * Initiate GDMT for CHF when appropriate * Hold for now given ROBERTO * DVT/VTE prophylaxis: SCDs Consider goals of care with the patient and family. Thank you for allowing us to participate in this patient's care. Please call if you have any questions or concerns. This medical document was created using an electronic medical record system with voice recognition software and computerized dictation system. Although this document has been carefully reviewed, there might still be some phonetic and typographical errors. Occasional wrong-word or ``sound-alike substitutions may have occurred due to the inherent limitations of voice recognition software. These areas are purely typographical due to imperfections of the software programs and do not reflect any compromise in the patient's medical care. Please read the chart carefully and recognize, using context, where these substitutions have occurred Plan discussed with: Patient Dietary Evaluation Review Comments: Continue current plan of care Expected Outcomes/Goals: F/U in 3-5 days Date of Service: Jan 23, 2024 Billing Provider: ELADIO POOL MD Cardiology Common Codes: [id number] INP/OBS CARE(Mod) ROSALIO SCHNEIDER RABBLE FURNACE TENDER Jan 23, 2024 17:07
[2024-01-23] MEDS: ONDANSETRON HCL 4 MG/2 ML VIAL IV PRN (23:08)
[2024-01-23] MEDS: MIDODRINE HCL 10 MG TAB PO SCH (23:39)
[2024-01-24] VITALS (7 sets, daily range): BP systolic 83–96; BP diastolic 54–60; PULSE 42–69; RESP 16–20; TEMP 97.1–98.5; O2SAT 93–96
[2024-01-24 06:57] LABS: Chloride 98 mmol/L (98-107); Potassium 3.3 mmol/L (3.5-5.1); Sodium 138 mmol/L (136-145)
[2024-01-24 06:58] LABS: Anion Gap 11 (5-15); Carbon Dioxide 29 mmol/L (20-31)
[2024-01-24 06:59] LABS: Calcium 10.1 mg/dL (8.7-10.4)
[2024-01-24 07:03] LABS: BUN/Creatinine Ratio 40.6 (10.0-20.0); Glucose 98 mg/dL (74-106)
[2024-01-24 07:04] LABS: Creatine Kinase IFCC 828 U/L (46-171); Magnesium 2.2 mg/dL (1.6-2.6)
[2024-01-24 07:15] LABS: Blood Urea Nitrogen 93 mg/dL (9-23)
--- NOTE | 2024-01-24 10:48 | DVHPN2 ---
Consult Progress Note Date Seen: Jan 24, 2024 Subjective Other Systems: Patient very sleepy during assessment. Patient falls back to sleep easily. Objective vital signs Vital Sign Date Time Temp Pulse Resp B/P (MAP) Pulse Ox O2 Delivery O2 Flow Rate FiO2 01/24/24 09:00 98.4 64 18 96/60 (72) 95 98.4 01/24/24 08:05 Room Air* 0 21 Total Intake and Output 01/23/24 01/23/24 01/24/24 15:00 23:00 07:00 Intake Total 625 ml 1050 ml Output Total 1200 ml 2125 ml Balance -575 ml -1075 ml medications Current Medications Medications Dose Ordered Sig/Ady Route Start Time Stop Time Status Last Admin Dose Admin Ondansetron HCl 4 mg Q4HP PRN IV 01/17/24 21:15 01/23/24 23:08 4 MG Acetaminophen 650 mg Q6HP PRN PO 01/17/24 21:15 Nitroglycerin 0.4 mg Q5MINP PRN SL 01/17/24 21:15 Morphine Sulfate 2 mg Q30M PRN IV 01/17/24 21:15 Aspirin 81 mg DAILY PO 01/19/24 10:00 01/23/24 09:59 81 MG Furosemide 40 mg BIDD IV 01/19/24 06:00 01/23/24 17:57 40 MG Metoprolol Tartrate 12.5 mg BID PO 01/22/24 22:00 Midodrine 10 mg TID@0600,1200,1800 PO 01/24/24 00:00 01/24/24 05:31 10 MG Examination: GENERAL:Abnormal, LUNGS:Normal, CVS:Normal laboratory and microbiology Laboratory Tests 01/24/24 06:19 01/21/24 05:32 Test 01/24/24 06:19 Range/Units Serum Glucose 98 74-106 mg/dL Problem List/Assessment/Plan Problem List/Assessment/Plan Acute on chronic decompensated HFrEF, NYHA Class IV Unspecified dilated cardiomyopathy with an EF of 10% Rhabdomyolysis Leukocytosis NSTEMI, likely type 2 secondary to above Presence of single-lead AICD ([facility] 2022) Mitral valve regurgitation, moderate degree Tricuspid valve regurgitation, mild to moderate degree Acute kidney injury Thrombocytopenia Hematuria Elevated LFTs Alcoholism Plan/Recommendation (Dr. Pool): * Echocardiogram reveals EF 10% with severely dilated left ventricle. * Preload and afterload reduction. D/C dobutamine * Initiate low dose beta dale as tolerated * Continue diuresis * Strict I&Os. Daily weight. Maintain fluid restriction * Initiate GDMT for CHF when appropriate * Hold for now given ROBERTO * D/C midodrine * Please do not administer Midodrine as this is contraindicated in patients with reduced ejection fraction * DVT/VTE prophylaxis: SCDs * Initiate CORKY hose compression stockings Consider goals of care with the patient and family. Thank you for allowing us to participate in this patient's care. Please call if you have any questions or concerns. This medical document was created using an electronic medical record system with voice recognition software and computerized dictation system. Although this document has been carefully reviewed, there might still be some phonetic and typographical errors. Occasional wrong-word or ``sound-alike substitutions may have occurred due to the inherent limitations of voice recognition software. These areas are purely typographical due to imperfections of the software programs and do not reflect any compromise in the patient's medical care. Please read the chart carefully and recognize, using context, where these substitutions have occurred Plan discussed with: Patient Dietary Evaluation Review Comments: Continue current plan of care Expected Outcomes/Goals: F/U in 3-5 days Date of Service: Jan 24, 2024 Billing Provider: ELADIO POOL MD Cardiology Common Codes: [id number] INP/OBS CARE(Mod) ROSALIO SCHNEIDER CHILDREN COUNSELOR Jan 24, 2024 10:48
--- NOTE | 2024-01-24 15:06 | DVHPN2 ---
Progress Note - Dictate Date Seen: Jan 24, 2024 Medical Necessity Reason Pt with a Central, PICC or Fol: No Subjective responsive, seen earlier this afternoon vital signs Vital Sign Date Time Temp Pulse Resp B/P (MAP) Pulse Ox O2 Delivery O2 Flow Rate FiO2 01/24/24 13:00 97.1 42 16 92/54 (67) 96 97.1 01/24/24 08:05 Room Air* 0 21 Total Intake and Output 01/23/24 01/23/24 01/24/24 15:00 23:00 07:00 Intake Total 625 ml 1050 ml Output Total 1200 ml 2125 ml Balance -575 ml -1075 ml medications Current Medications Medications Dose Ordered Sig/Ady Route Start Time Stop Time Status Last Admin Dose Admin Ondansetron HCl 4 mg Q4HP PRN IV 01/17/24 21:15 01/23/24 23:08 4 MG Acetaminophen 650 mg Q6HP PRN PO 01/17/24 21:15 Nitroglycerin 0.4 mg Q5MINP PRN SL 01/17/24 21:15 Morphine Sulfate 2 mg Q30M PRN IV 01/17/24 21:15 Aspirin 81 mg DAILY PO 01/19/24 10:00 01/24/24 10:00 81 MG Furosemide 40 mg BIDD IV 01/19/24 06:00 01/23/24 17:57 40 MG Metoprolol Tartrate 12.5 mg BID PO 01/22/24 22:00 objective Gen: nad heent: nc/at, mmm lungs: cta anteriorly cvs: no rub abd: soft, bowel sounds audible ext: no edema skin: no rash neuro: alert and oriented laboratory and microbiology Laboratory Tests 01/24/24 06:19 01/21/24 05:32 Test 01/24/24 06:19 Range/Units Serum Glucose 98 74-106 mg/dL Assessment/Plan Problem List/Assessment/Plan ROBERTO likely hemodynamically mediated in setting of cardiorenal syndrome High ck sec to Myocardial ischemia /NSTEMI Acute on chronic HFrEF EF 10 NSTEMI type 2 likely due to above Leukocytosis History of alcohol abuse Elevated liver enzymes Lactic acidosis Plan/recommendation - GFR improving by persistence and azotemia - will continue to follow - even fluid balance as cardio/pulmonary status permits Dietary Evaluation Review Comments: Continue current plan of care Expected Outcomes/Goals: F/U in 3-5 days Plan discussed with: Other STEW CARBAJAL MD Jan 24, 2024 15:06
--- NOTE | 2024-01-24 16:55 | DVHPN2 ---
Subjective No new complaints Changes from previous H/P or p: Changes Objective Vitals Vital Signs Date Time Temp Pulse Resp B/P (MAP) Pulse Ox O2 Delivery O2 Flow Rate FiO2 01/24/24 13:00 97.1 42 16 92/54 (67) 96 97.1 01/24/24 08:05 Room Air* 0 21 Intake/Output Intake and Output 01/24/24 07:00 Intake Total 1675 ml Output Total 3325 ml Balance -1650 ml Intake Oral 1675 ml Output Urine Total 3325 ml General Appearance: Alert, Oriented X3 Lungs: Clear to auscultation, Normal air movement Cardiovascular: Regular rate, Normal S2 Abdomen: Normal bowel sounds, Soft, No tenderness Extremities: No edema Medications Current Medications Medications Dose Ordered Sig/Ady Route Start Time Stop Time Status Last Admin Dose Admin Ondansetron HCl 4 mg Q4HP PRN IV 01/17/24 21:15 01/23/24 23:08 4 MG Acetaminophen 650 mg Q6HP PRN PO 01/17/24 21:15 Nitroglycerin 0.4 mg Q5MINP PRN SL 01/17/24 21:15 Morphine Sulfate 2 mg Q30M PRN IV 01/17/24 21:15 Aspirin 81 mg DAILY PO 01/19/24 10:00 01/24/24 10:00 81 MG Furosemide 40 mg BIDD IV 01/19/24 06:00 01/23/24 17:57 40 MG Metoprolol Tartrate 12.5 mg BID PO 01/22/24 22:00 Laboratory Results Laboratory Tests 01/21/24 05:32 01/24/24 06:19 Chemistry Test 01/24/24 06:19 Calcium Level 10.1 mg/dL (8.7-10.4) Magnesium Level 2.2 mg/dL (1.6-2.6) Urinalysis Test 01/17/24 20:52 Urine Color Light-orange (Yellow) Urine Clarity Turbid (Clear) H Urine pH 5.5 (5.0-9.0) Urine Specific [place] 1.018 (1.001-1.035) Urine Protein 2+ (Negative) H Urine Ketones Trace (Negative) Urine Blood 3+ /uL (Negative) H Urine Nitrite Negative (Negative) Urine Bilirubin Negative (Negative) Urine Urobilinogen Normal mg/dL (Negative) Urine Leukocyte Esterase Negative /uL (Negative) Urine RBC <1 /hpf (0 - 3) Urine WBC 2 /hpf (0 - 3) Urine Squamous Epithelial Cells None seen /hpf (<5) Urine Bacteria None seen /hpf (None Seen) Urine Mucus Few (None Seen) Urine Glucose Normal mg/dL (Normal) Microbiology Microbiology Date/Time Source Procedure Growth Status 01/17/24 22:47 Sputum Gram Stain - Final Complete 01/17/24 22:47 Respiratory Culture - Final Streptococcus pneumoniae Complete Assessment/Plan Assessment/Plan Rhabdomyolysis Acute kidney injury due to vasomotor nephropathy Dilated cardiomyopathy, ejection fraction 10% Acute on chronic decompensated heart failure with reduced ejection fraction NSTEMI likely type 2 History of ICD Thrombocytopenia Hematuria Elevated liver function tests Alcoholism Homelessness Leukocytosis Lactic acidosis Plan 01/18/24: Continue IV fluids with normal saline Continue IV Lasix Echocardiogram showed ejection fraction 10% Monitor for alcohol withdrawal Cardiology consult Nephrology consult Dopamine drip ordered by Cardiology Aspirin 01/19/2024: Continue the current management IV fluids were discontinued by Nephrology Continue IV Lasix Rhabdomyolysis is improving, CK is coming down Troponin is better Echocardiogram showed ejection fraction 10% Monitor closely casting house worker consult for homelessness 01/20/2024: ROBERTO: Creatinine is 3.4 Rhabdomyolysis: History of alcoholism Elevated liver functions Lactic acidosis NSTEMI type 2 Acute on chronic heart failure with a low ejection fraction 10%: Chest x-ray shows mild congestion Thrombocytopenia Continue IV Lasix Dobutamine drip Oxygen as needed 01/21/2024: Discontinue the [facility] Physical therapy Out of bed as tolerated Continue to monitor Continue to watch the liver and kidney functions The patient is homeless Does not know what where he is going to go when he is discharged 01/22/2024: Continue current management Rhabdomyolysis is improving Kidney function is better Continue physical therapy Check the CK again in the morning 01/23/2024: Continue current management Continue physical therapy The patient is still does not know where he is going to go when he is discharged I encouraged him to try to contact his friends or family so we can arrange his discharge possibly in 1-2 days 01/24/2024: Continue the current management Replace potassium Discharge planning for tomorrow Plan discussed with: Patient Date of Service: Jan 24, 2024 Billing Provider: CLARISSA FRY MD Common Visit Codes: [id number] INP/OBS CARE(MOD) CLARISSA FRY MD Jan 24, 2024 16:55
[2024-01-24] MEDS: POTASSIUM CHL 20 Meq TABLET PO ONE (17:47)
[2024-01-25] VITALS (10 sets, daily range): BP systolic 87–105; BP diastolic 52–64; PULSE 44–60; RESP 17–20; TEMP 97.1–98.5; O2SAT 95–97
[2024-01-25 07:11] LABS: Calcium 9.7 mg/dL (8.7-10.4); Chloride 101 mmol/L (98-107); Potassium 3.7 mmol/L (3.5-5.1); Sodium 140 mmol/L (136-145)
[2024-01-25 07:12] LABS: Anion Gap 11 (5-15); Carbon Dioxide 28 mmol/L (20-31)
[2024-01-25 07:17] LABS: Glucose 88 mg/dL (74-106)
[2024-01-25 07:18] LABS: BUN/Creatinine Ratio 48.2 (10.0-20.0)
[2024-01-25 07:41] LABS: Blood Urea Nitrogen 95 mg/dL (9-23)
[2024-01-25] MEDS: FUROSEMIDE 20 MG/2 ML VIAL IV ONE (08:39)
[2024-01-25] MEDS: METOPROLOL TARTRATE 25 MG TAB PO SCH (10:00)
--- NOTE | 2024-01-25 12:11 | DVHPN2 ---
Progress Note Date Seen: Jan 25, 2024 Resident Creating Document: АНДРЕЙ HENRY RESIDENT Medical Necessity Reason Pt with a Central, PICC or Fol: No Subjective Review of Systems Patient is a 48-year-old male with past medical history of hypertension, presence of AICD brought to the hospital via EMS for chief complaint altered level of consciousness. 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 As per patient he did not recall how ended up in the hospital. Patient complaining of cough, denying any other symptoms including fever, chills, chest pain, shortness of breath, any other symptoms at this point. Patient is poor historian, not able to provide his medical history, what kind of medication he takes or any other information. Past Medical History Not able to obtain Past Surgical History Status post single lead AICD placement Family History: Patient reports no known family medical history. Family History Unable to obtain Social History Three beers per day, chronic alcohol consumption Former smoker, smoked for at least 10-12 years. Stopped three years ago. Patient denied use of illicit drug or tobacco. Patient seen and examined at bedside. No new complains. Other Systems: Patient seen and examined by self in rounds with the mediciene rsident, I agree with assessment and plan d/c furosemide Objective vital signs Vital Sign Date Time Temp Pulse Resp B/P (MAP) Pulse Ox O2 Delivery O2 Flow Rate FiO2 01/25/24 10:00 51 94/54 01/25/24 09:00 98.1 18 96 98.1 01/24/24 20:00 Room Air* 0 21 Total Intake and Output 01/24/24 01/24/24 01/25/24 15:00 23:00 07:00 Intake Total 750 ml 636 ml Output Total 600 ml 900 ml Balance 150 ml -264 ml medications Current Medications Medications Dose Ordered Sig/Ady Route Start Time Stop Time Status Last Admin Dose Admin Ondansetron HCl 4 mg Q4HP PRN IV 01/17/24 21:15 01/23/24 23:08 4 MG Acetaminophen 650 mg Q6HP PRN PO 01/17/24 21:15 Nitroglycerin 0.4 mg Q5MINP PRN SL 01/17/24 21:15 Morphine Sulfate 2 mg Q30M PRN IV 01/17/24 21:15 Aspirin 81 mg DAILY PO 01/19/24 10:00 01/24/24 10:00 81 MG Furosemide 20 mg BIDD IV 01/25/24 18:00 Metoprolol Tartrate 12.5 mg BID PO 01/25/24 10:00 Examination General Appearance: Well developed. Well nourished. NAD Head Exam: Normal inspection Neck Exam: Normal inspection. Non-tender. Normal alignment Pulmonary/Respiratory: Chest non-tender. Clear bilateral breath sounds Cardiovascular/Chest: Regular rate and rhythm. No murmurs. No JVD. Peripheral Pulses: 2+ Radial (R). 2+ Radial (L). 2+ Pedal (R). 2+ Pedal (L) Abdominal Exam: Normal bowel sounds. Soft. Nontender. No hepatospenomegaly. No masses, scrotal swelling Ankle Exam: Negative ankle edema Lower extremities: Negative lower extremity edema Neuro/Mental Status: A&O x2. laboratory and microbiology Laboratory Tests 01/25/24 05:39 01/21/24 05:32 Test 01/25/24 05:39 Range/Units Serum Glucose 88 74-106 mg/dL Microbiology Date/Time Source Procedure Growth Status 01/17/24 22:47 Sputum Gram Stain - Final Complete 01/17/24 22:47 Respiratory Culture - Final Streptococcus pneumoniae Complete Problem List/Assessment/Plan Problem List/Assessment/Plan ROBERTO likely hemodynamically mediated in setting of cardiorenal syndrome High ck sec to Myocardial ischemia /NSTEMI Acute on chronic HFrEF EF 10 NSTEMI type 2 likely due to above Leukocytosis History of alcohol abuse Elevated liver enzymes Lactic acidosis Plan/recommendation Dr. cMconnell -creatinine trending down, increased urine output, improving GFR. -continue Lasix 20 mg IV b.i.d -echocardiogram showed 10% ejection fraction with global hypokinesis -maintain strict I&O, avoid nephrotoxic medication. -urinalysis: Negative for nitrites, leukocytosis, squamous epithelial cells. Urine protein 2+ -UDS negative for serum alcohol, drugs. -Ordered urine sodium, creatinine, total protein, serum phosphorus.: Still Pending -We will continue follow up. Plan discussed with: Patient, Other (RN) My Orders My Orders Orders - АНДРЕЙ HENRY Procedure Category Date Status Time Urine LAB 01/25/24 Verified Protein/Creatinine Urine Creatinine LAB 01/25/24 Verified 12:07 Urine Sodium LAB 01/25/24 Verified 12:07 Urine Protein LAB 01/25/24 Verified 12:07 Dietary Evaluation Review Comments: Continue current plan of care Expected Outcomes/Goals: F/U in 3-5 days АНДРЕЙ HENRY Jan 25, 2024 12:11 CHARMAINE MCCONNELL MD Jan 25, 2024 16:37
--- NOTE | 2024-01-25 14:18 | DVHPN2 ---
Consult Progress Note Date Seen: Jan 25, 2024 Subjective Review of Systems: CVS:Normal, RESPIRATORY:Normal, NEURO:Normal Other Systems: Denies any cardiac symptoms Objective vital signs Vital Sign Date Time Temp Pulse Resp B/P (MAP) Pulse Ox O2 Delivery O2 Flow Rate FiO2 01/25/24 10:00 51 94/54 01/25/24 09:00 98.1 18 96 98.1 01/25/24 08:00 Room Air* 0 21 Total Intake and Output 01/24/24 01/24/24 01/25/24 15:00 23:00 07:00 Intake Total 750 ml 636 ml Output Total 600 ml 900 ml Balance 150 ml -264 ml medications Current Medications Medications Dose Ordered Sig/Ady Route Start Time Stop Time Status Last Admin Dose Admin Ondansetron HCl 4 mg Q4HP PRN IV 01/17/24 21:15 01/23/24 23:08 4 MG Acetaminophen 650 mg Q6HP PRN PO 01/17/24 21:15 Nitroglycerin 0.4 mg Q5MINP PRN SL 01/17/24 21:15 Morphine Sulfate 2 mg Q30M PRN IV 01/17/24 21:15 Aspirin 81 mg DAILY PO 01/19/24 10:00 01/24/24 10:00 81 MG Furosemide 20 mg BIDD IV 01/25/24 18:00 Metoprolol Tartrate 12.5 mg BID PO 01/25/24 10:00 Examination: LUNGS:Normal, CVS:Normal, NEURO:Normal laboratory and microbiology Laboratory Tests 01/25/24 05:39 01/21/24 05:32 Test 01/25/24 05:39 Range/Units Serum Glucose 88 74-106 mg/dL Problem List/Assessment/Plan Problem List/Assessment/Plan Acute on chronic decompensated HFrEF, NYHA Class IV Unspecified dilated cardiomyopathy with an EF of 10% NSTEMI, likely type 2 secondary to above Presence of single-lead AICD ([facility] 2022) Mitral valve regurgitation, moderate degree Tricuspid valve regurgitation, mild to moderate degree Acute kidney injury Thrombocytopenia Hematuria Elevated LFTs Alcoholism Plan/Recommendation (Dr. Pool) * Echocardiogram revealed EF 10% with severely dilated left ventricle. * Preload and afterload reduction. Low dose beta-dale and lasix with parameters * Strict I&Os. Daily weight. Maintain fluid restriction * Continue CORKY hose compression stockings * Initiate GDMT for CHF when appropriate. Hold for now given ROBERTO * Replete electrolytes as necessary * Midodrine is contraindicated with HFrEF * DVT/VTE prophylaxis: SCDs given thrombocytopenia Consider goals of care with the patient and family. The patient is cardiac stable at this time. Thank you for allowing us to participate in this patient's care. Please call if you have any questions or concerns. This medical document was created using an electronic medical record system with voice recognition software and computerized dictation system. Although this document has been carefully reviewed, there might still be some phonetic and typographical errors. Occasional wrong-word or ``sound-alike substitutions may have occurred due to the inherent limitations of voice recognition software. These areas are purely typographical due to imperfections of the software programs and do not reflect any compromise in the patient's medical care. Please read the chart carefully and recognize, using context, where these substitutions have occurred Plan discussed with: Patient, Other Dietary Evaluation Review Comments: Continue current plan of care Expected Outcomes/Goals: F/U in 3-5 days Date of Service: Jan 25, 2024 Billing Provider: ELADIO POOL MD Cardiology Common Codes: [id number] HOSP CARE(High [facility] Jan 25, 2024 14:18
--- NOTE | 2024-01-25 14:35 | DVHPN2 ---
Subjective No new complaints Changes from previous H/P or p: Changes Objective Vitals Vital Signs Date Time Temp Pulse Resp B/P (MAP) Pulse Ox O2 Delivery O2 Flow Rate FiO2 01/25/24 10:00 51 94/54 01/25/24 09:00 98.1 18 96 98.1 01/25/24 08:00 Room Air* 0 21 Intake/Output Intake and Output 01/25/24 06:59 Intake Total 1386 ml Output Total 1500 ml Balance -114 ml Intake Oral 1386 ml Output Urine Total 1500 ml General Appearance: Alert, Oriented X3 Lungs: Clear to auscultation, Normal air movement Cardiovascular: Regular rate, Normal S2 Abdomen: Normal bowel sounds, Soft, No tenderness Extremities: No edema Medications Current Medications Medications Dose Ordered Sig/Ady Route Start Time Stop Time Status Last Admin Dose Admin Ondansetron HCl 4 mg Q4HP PRN IV 01/17/24 21:15 01/23/24 23:08 4 MG Acetaminophen 650 mg Q6HP PRN PO 01/17/24 21:15 Nitroglycerin 0.4 mg Q5MINP PRN SL 01/17/24 21:15 Morphine Sulfate 2 mg Q30M PRN IV 01/17/24 21:15 Aspirin 81 mg DAILY PO 01/19/24 10:00 01/24/24 10:00 81 MG Furosemide 20 mg BIDD IV 01/25/24 18:00 Metoprolol Tartrate 12.5 mg BID PO 01/25/24 10:00 Laboratory Results Laboratory Tests 01/21/24 05:32 01/25/24 05:39 Chemistry Test 01/25/24 05:39 Calcium Level 9.7 mg/dL (8.7-10.4) Urinalysis Test 01/17/24 20:52 Urine Color Light-orange (Yellow) Urine Clarity Turbid (Clear) H Urine pH 5.5 (5.0-9.0) Urine Specific [place] 1.018 (1.001-1.035) Urine Protein 2+ (Negative) H Urine Ketones Trace (Negative) Urine Blood 3+ /uL (Negative) H Urine Nitrite Negative (Negative) Urine Bilirubin Negative (Negative) Urine Urobilinogen Normal mg/dL (Negative) Urine Leukocyte Esterase Negative /uL (Negative) Urine RBC <1 /hpf (0 - 3) Urine WBC 2 /hpf (0 - 3) Urine Squamous Epithelial Cells None seen /hpf (<5) Urine Bacteria None seen /hpf (None Seen) Urine Mucus Few (None Seen) Urine Glucose Normal mg/dL (Normal) Microbiology Microbiology Date/Time Source Procedure Growth Status 01/17/24 22:47 Sputum Gram Stain - Final Complete 01/17/24 22:47 Respiratory Culture - Final Streptococcus pneumoniae Complete Assessment/Plan Assessment/Plan Rhabdomyolysis Acute kidney injury due to vasomotor nephropathy Dilated cardiomyopathy, ejection fraction 10% Acute on chronic decompensated heart failure with reduced ejection fraction NSTEMI likely type 2 History of ICD Thrombocytopenia Hematuria Elevated liver function tests Alcoholism Homelessness Leukocytosis Lactic acidosis Plan 01/18/24: Continue IV fluids with normal saline Continue IV Lasix Echocardiogram showed ejection fraction 10% Monitor for alcohol withdrawal Cardiology consult Nephrology consult Dopamine drip ordered by Cardiology Aspirin 01/19/2024: Continue the current management IV fluids were discontinued by Nephrology Continue IV Lasix Rhabdomyolysis is improving, CK is coming down Troponin is better Echocardiogram showed ejection fraction 10% 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 01/20/2024: ROBERTO: Creatinine is 3.4 Rhabdomyolysis: History of alcoholism Elevated liver functions Lactic acidosis NSTEMI type 2 Acute on chronic heart failure with a low ejection fraction 10%: Chest x-ray shows mild congestion Thrombocytopenia Continue IV Lasix Dobutamine drip Oxygen as needed 01/21/2024: Discontinue the [place] Physical therapy Out of bed as tolerated Continue to monitor Continue to watch the liver and kidney functions The patient is homeless Does not know what where he is going to go when he is discharged 01/22/2024: Continue current management Rhabdomyolysis is improving Kidney function is better Continue physical therapy Check the CK again in the morning 01/23/2024: Continue current management Continue physical therapy The patient is still does not know where he is going to go when he is discharged I encouraged him to try to contact his friends or family so we can arrange his discharge possibly in 1-2 days 01/24/2024: Continue the current management Replace potassium Discharge planning for tomorrow 01/25/2024: Continue the current management and plan Consult social economist for discharge planning Discharged home once if facility or a fdc is found for the patient Says he has friends [place] but he does not have a way to go there Plan discussed with: Patient My Orders Orders - CLARISSA FRY MD Procedure Category Date Status Time * Test And Turn Up Technician CONS 01/25/24 Transmitted Consult Date of Service: Jan 25, 2024 Billing Provider: CLARISSA FRY MD Common Visit Codes: [id number] INP/OBS CARE(MOD) CLARISSA FRY MD Jan 25, 2024 14:35
[2024-01-25] MEDS ORDERED: FUROSEMIDE 20 MG/2 ML VIAL IV SCH (18:00)
[2024-01-25 18:33] LABS: Magnesium 2.3 mg/dL (1.6-2.6)
[2024-01-26] VITALS (8 sets, daily range): BP systolic 88–97; BP diastolic 44–61; PULSE 49–97; RESP 15–20; TEMP 97.4–98.5; O2SAT 52–98
[2024-01-26 06:22] LABS: Anion Gap 8 (5-15); Calcium 9.7 mg/dL (8.7-10.4); Carbon Dioxide 29 mmol/L (20-31); Chloride 103 mmol/L (98-107); Potassium 3.6 mmol/L (3.5-5.1); Sodium 140 mmol/L (136-145)
[2024-01-26 06:27] LABS: Glucose 90 mg/dL (74-106)
[2024-01-26 06:28] LABS: BUN/Creatinine Ratio 42.6 (10.0-20.0)
[2024-01-26 06:29] LABS: Blood Urea Nitrogen 69 mg/dL (9-23)
--- NOTE | 2024-01-26 13:01 | DVHDS2 ---
Discharge Summary Date of Admission Jan 17, 2024 at 21:12 Date of Discharge: Jan 26, 2024 Labs/Diagnostic Data: Laboratory Results Test 01/26/24 05:26 01/25/24 19:26 01/25/24 05:39 01/24/24 06:19 Sodium Level 140 mmol/L (136-145) Potassium Level 3.6 mmol/L (3.5-5.1) Chloride Level 103 mmol/L (98-107) Carbon Dioxide Level 29 mmol/L (20-31) Anion Gap 8 (5-15) Blood Urea Nitrogen 69 mg/dL (9-23) Creatinine 1.62 mg/dL (0.700-1.30) Glomerular Filtration Rate Calc 53 mL/min (>90) BUN/Creatinine Ratio 42.6 (10.0-20.0) Serum Glucose 90 mg/dL (74-106) Calcium Level 9.7 mg/dL (8.7-10.4) Vitamin D 25-Hydroxy 35.8 ng/mL (30.0-100) Phosphorus Level 5.0 mg/dL (2.4-5.1) Magnesium Level 2.3 mg/dL (1.6-2.6) Creatine Kinase 828 U/L (46-171) Test 01/23/24 05:30 01/22/24 05:59 01/21/24 05:32 01/19/24 18:03 B-Type Natriuretic Peptide 490.61 pg/mL (0-100) Total Bilirubin 1.3 mg/dL (0.2-1.0) Aspartate Amino Transferase (AST) 298 U/L (13-40) Alanine Aminotransferase (ALT) 125 U/L (7-40) Alkaline Phosphatase 57 U/L (46-116) Total Protein 7.3 g/dL (5.7-8.2) Albumin 4.2 g/dL (3.2-4.8) White Blood Count 8.5 10^3/uL (4.4-10.8) Red Blood Count 4.36 10^6/uL (4.5-5.90) Hemoglobin 15.6 g/dL (13.5-17.5) Hematocrit 45.1 % (41.0-53.0) Mean Corpuscular Volume 103.5 fL (80.0-100.0) Mean Corpuscular Hemoglobin 35.9 pg (28.0-32.0) Mean Corpuscular Hemoglobin Concent 34.6 g/dL (32.0-36.0) Red Cell Distribution Width 12.7 % (11.8-14.3) Platelet Count 97 10^3/uL (140-450) Mean Platelet Volume 10.7 fL (6.9-10.8) Neutrophils (%) (Auto) 72.2 % (37.0-80.0) Lymphocytes (%) (Auto) 11.1 % (10.0-50.0) Monocytes (%) (Auto) 14.9 % (0.0-12.0) Eosinophils (%) (Auto) 1.0 % (0.0-7.0) Basophils (%) (Auto) 0.8 % (0.0-2.0) Neutrophils # (Auto) 6.2 10 ^3/uL (1.6-8.6) Lymphocytes # (Auto) 0.9 10 ^3/uL (0.4-5.4) Monocytes # (Auto) 1.3 10 ^3/uL (0-1.3) Eosinophils # (Auto) 0.1 10 ^3/uL (0-0.8) Basophils # (Auto) 0.1 10 ^3/uL (0-0.2) Nucleated Red Blood Cells 0.0 % Test 01/19/24 05:09 01/18/24 03:55 01/17/24 23:40 01/17/24 21:37 Ammonia 33 umol/L (11-32) Troponin I High Sensitivity 1836 ng/L (</=54) Triglycerides Level 134 mg/dL (< 150) Cholesterol Level 135 mg/dL (< 200) LDL Cholesterol 71 mg/dL (< 100) HDL Cholesterol 41 mg/dL (40-59) Thyroid Stimulating Hormone (TSH) 3.62 uIU/mL (0.55-4.78) Hemoglobin A1c 4.8 % A1C (<5.7) Direct Bilirubin 0.4 mg/dL (<0.3) Lactic Acid Level 2.0 mmol/L (0.4-2.0) Blood Gas Specimen Type Arterial Blood Gas Sample Site Right radial Blood Gas Patient Temperature 37.0 Arterial Blood Date Drawn [id number] Arterial Blood pH 7.494 (7.350-7.450) Arterial Blood Partial Pressure CO2 25.7 mmHg (35.0-48.0) Arterial Blood Partial Pressure O2 84.3 mmHg (83.0-108.0) Arterial Blood HCO3 19.3 mmol/L (21.0-28.0) Arterial Blood Oxygen Saturation 96.7 % (94.0-98.0) Arterial Blood Base Excess -2.0 mmol/L (-2.0-3.0) Arterial Blood Oxyhemoglobin 90.7 % (94.0-98.0) Arterial Blood Carboxyhemoglobin 5.9 % (0.5-1.5) Arterial Blood Methemoglobin 0.3 % (0.0-1.5) Jame Test Yes Blood Gas Total Hemoglobin 15.80 g/dL (13.5-17.5) Blood Gas Liter Flow 2.00 Blood Gas Modality Nasal cannula Blood Gas Spontaneous Rate 28 FiO2 % 28.0 Test 01/17/24 20:52 01/17/24 13:42 Urine Color Light-orange (Yellow) Urine Clarity Turbid (Clear) Urine pH 5.5 (5.0-9.0) Urine Specific [place] 1.018 (1.001-1.035) Urine Protein 2+ (Negative) Urine Ketones Trace (Negative) Urine Blood 3+ /uL (Negative) Urine Nitrite Negative (Negative) Urine Bilirubin Negative (Negative) Urine Urobilinogen Normal mg/dL (Negative) Urine Leukocyte Esterase Negative /uL (Negative) Urine RBC <1 /hpf (0 - 3) Urine WBC 2 /hpf (0 - 3) Urine Squamous Epithelial Cells None seen /hpf (<5) Urine Bacteria None seen /hpf (None Seen) Urine Mucus Few (None Seen) Urine Glucose Normal mg/dL (Normal) Urine Opiates Screen Neg (NEGATIVE) Urine Fentanyl Screen Neg (NEGATIVE) Urine Barbiturates Screen Neg (NEGATIVE) Urine Phencyclidine Screen Neg (NEGATIVE) Urine Amphetamines Screen Neg (NEGATIVE) Urine Benzodiazepines Screen Neg (NEGATIVE) Urine Cocaine Screen Neg (NEGATIVE) Urine Cannabinoids Screen Neg (NEGATIVE) Plasma/Serum Blood Alcohol < 3.0 mg/dL (<10) Other Laboratory Tests 01/26/24 05:26 01/21/24 05:32 Brief Hx & Hospital Course: Final diagnoses: Rhabdomyolysis Acute kidney injury due to vasomotor nephropathy Dilated cardiomyopathy, ejection fraction 10% Acute on chronic decompensated heart failure with reduced ejection fraction NSTEMI likely type 2 History of ICD Thrombocytopenia Hematuria Elevated liver function tests Alcoholism Homelessness Leukocytosis Lactic acidosis He was diuresed with Lasix Overall his symptoms improved slowly Due to his acute kidney injury and rhabdomyolysis and hypotension he was not started on GDMT He said he is homeless but he has a friend downhill that he can go and stay with We consulted the psychiatric social worker supervisor to assist him to get to where he wants to go He is stable for discharge now His latest creatinine today is 1.6 and is trending down He takes Lasix and carvedilol at home which he should continue Follow up with primary care physician as soon as possible business services sales representative will provide a ride for him Condition at Discharge: Stable Final Diagnosis/Problems List Rhabdomyolysis Acute kidney injury due to vasomotor nephropathy Dilated cardiomyopathy, ejection fraction 10% Acute on chronic decompensated heart failure with reduced ejection fraction NSTEMI likely type 2 History of ICD Thrombocytopenia Hematuria Elevated liver function tests Alcoholism Homelessness Leukocytosis Lactic acidosis Discharge Disposition: Home SNF Discharge Will this Physician continue t: No Discharge Instruct/Medications Diet: Cardiac 2g Na,low cholest Activity: No Restrictions, As Tolerated Follow Up/Referral: PCP JEREMIE Medications: Same home meds Discharge Statement: "Patient was advised to return to the ER or call 911 if any headaches, dizziness, shortness of breath, chest pain, abdominal pain, bleeding, fevers, or worsening of medical condition. Patient was counseled about treatment plan, medications, possible side effects, patientverbalized understanding. All questions were answered to the best of my ability. This discharge took greater then 30 minutes in planning, reviewing documentation, counseling the patient, and discussing with other team members." ASSESSMENT ASSESSMENT Assessment Rhabdomyolysis Acute kidney injury due to vasomotor nephropathy Dilated cardiomyopathy, ejection fraction 10% Acute on chronic decompensated heart failure with reduced ejection fraction NSTEMI likely type 2 History of ICD Thrombocytopenia Hematuria Elevated liver function tests Alcoholism Homelessness Leukocytosis Lactic acidosis Date of Service: Jan 26, 2024 Billing Provider: CLARISSA FRY MD Common Visit Codes: [id number]/[id number] DISCH DAY >30min CLARISSA FRY MD Jan 26, 2024 13:01
--- NOTE | 2024-01-26 14:20 | DVHPN2 ---
Progress Note Date Seen: Jan 26, 2024 Resident Creating Document: АНДРЕЙ HENRY RESIDENT Medical Necessity Reason Pt with a Central, PICC or Fol: No Subjective Review of Systems Patient is a 48-year-old male with past medical history of hypertension, presence of AICD brought to the hospital via EMS for chief complaint altered level of consciousness. 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 As per patient he did not recall how ended up in the hospital. Patient complaining of cough, denying any other symptoms including fever, chills, chest pain, shortness of breath, any other symptoms at this point. Patient is poor historian, not able to provide his medical history, what kind of medication he takes or any other information. Past Medical History Not able to obtain Past Surgical History Status post single lead AICD placement Family History: Patient reports no known family medical history. Family History Unable to obtain Social History Three beers per day, chronic alcohol consumption Former smoker, smoked for at least 10-12 years. Stopped three years ago. Patient denied use of illicit drug or tobacco. Patient seen and examined at bedside. No new complains. Other Systems: Patient seen and examined by myself with the medicine resident today on rounds, I agree with his assessment and plan as documented in this note Objective vital signs Vital Sign Date Time Temp Pulse Resp B/P (MAP) Pulse Ox O2 Delivery O2 Flow Rate FiO2 01/26/24 13:00 97.4 55 15 93/61 (72) 98 97.4 01/26/24 08:00 Room Air* 0 21 Total Intake and Output 01/25/24 01/25/24 01/26/24 15:00 23:00 07:00 Intake Total 900 ml 0 ml Output Total 900 ml Balance 900 ml -900 ml medications Current Medications Medications Dose Ordered Sig/Ady Route Start Time Stop Time Status Last Admin Dose Admin Ondansetron HCl 4 mg Q4HP PRN IV 01/17/24 21:15 01/23/24 23:08 4 MG Acetaminophen 650 mg Q6HP PRN PO 01/17/24 21:15 Nitroglycerin 0.4 mg Q5MINP PRN SL 01/17/24 21:15 Morphine Sulfate 2 mg Q30M PRN IV 01/17/24 21:15 Aspirin 81 mg DAILY PO 01/19/24 10:00 01/24/24 10:00 81 MG Metoprolol Tartrate 12.5 mg BID PO 01/25/24 10:00 Examination General Appearance: Well developed. Well nourished. NAD Head Exam: Normal inspection Neck Exam: Normal inspection. Non-tender. Normal alignment Pulmonary/Respiratory: Chest non-tender. Clear bilateral breath sounds Cardiovascular/Chest: Regular rate and rhythm. No murmurs. No JVD. Peripheral Pulses: 2+ Radial (R). 2+ Radial (L). 2+ Pedal (R). 2+ Pedal (L) Abdominal Exam: Normal bowel sounds. Soft. Nontender. No hepatospenomegaly. No masses, scrotal swelling Ankle Exam: Negative ankle edema Lower extremities: Negative lower extremity edema Neuro/Mental Status: A&O x2. laboratory and microbiology Laboratory Tests 01/26/24 05:26 01/21/24 05:32 Test 01/26/24 05:26 Range/Units Serum Glucose 90 74-106 mg/dL Microbiology Date/Time Source Procedure Growth Status 01/17/24 22:47 Sputum Gram Stain - Final Complete 01/17/24 22:47 Respiratory Culture - Final Streptococcus pneumoniae Complete Problem List/Assessment/Plan Problem List/Assessment/Plan ROBERTO likely hemodynamically mediated in setting of cardiorenal syndrome High ck sec to Myocardial ischemia /NSTEMI Acute on chronic HFrEF EF 10 NSTEMI type 2 likely due to above Leukocytosis History of alcohol abuse Elevated liver enzymes Lactic acidosis Plan/recommendation Dr. Mcconnell -creatinine trending down, increased urine output, improving GFR. -continue Lasix 20 mg IV b.i.d. Can discharged home with oral Lasix 40 mg p.o. daily. -echocardiogram showed 10% ejection fraction with global hypokinesis -maintain strict I&O, avoid nephrotoxic medication. -urinalysis: Negative for nitrites, leukocytosis, squamous epithelial cells. Urine protein 2+ -UDS negative for serum alcohol, drugs. -Ordered urine sodium, creatinine, total protein, serum phosphorus.: Still Pending Patient has been discharged home. Follow with Dr. Mcconnell in outpatient nephrology in two weeks. Plan discussed with: Patient, Other (RN) Dietary Evaluation Review Comments: Continue current plan of care Expected Outcomes/Goals: F/U in 3-5 days АНДРЕЙ HENRY RESIDENT Jan 26, 2024 14:20 CHARMAINE MCCONNELL MD Jan 26, 2024 14:55
--- NOTE | 2024-01-26 14:55 | DVHPN2 ---
Consult Progress Note Date Seen: Jan 26, 2024 Subjective Other Systems: The patient remains in sinus bradycardia at time of assessment. Objective vital signs Vital Sign Date Time Temp Pulse Resp B/P (MAP) Pulse Ox O2 Delivery O2 Flow Rate FiO2 01/26/24 14:33 97.4 55 15 98 01/26/24 13:00 93/61 (72) 01/26/24 08:00 Room Air* 0 21 Total Intake and Output 01/25/24 01/25/24 01/26/24 15:00 23:00 07:00 Intake Total 900 ml 0 ml Output Total 900 ml Balance 900 ml -900 ml medications Current Medications Medications Dose Ordered Sig/Ady Route Start Time Stop Time Status Last Admin Dose Admin Ondansetron HCl 4 mg Q4HP PRN IV 01/17/24 21:15 01/23/24 23:08 4 MG Acetaminophen 650 mg Q6HP PRN PO 01/17/24 21:15 Nitroglycerin 0.4 mg Q5MINP PRN SL 01/17/24 21:15 Morphine Sulfate 2 mg Q30M PRN IV 01/17/24 21:15 Aspirin 81 mg DAILY PO 01/19/24 10:00 01/24/24 10:00 81 MG Metoprolol Tartrate 12.5 mg BID PO 01/25/24 10:00 Examination: GENERAL:Normal, LUNGS:Normal, CVS:Normal, NEURO:Normal laboratory and microbiology Laboratory Tests 01/26/24 05:26 01/21/24 05:32 Test 01/26/24 05:26 Range/Units Serum Glucose 90 74-106 mg/dL Problem List/Assessment/Plan Problem List/Assessment/Plan Acute on chronic decompensated HFrEF, NYHA Class IV Unspecified dilated cardiomyopathy with an EF of 10% Rhabdomyolysis Leukocytosis NSTEMI, likely type 2 secondary to above Presence of single-lead AICD ([facility] 2022) Mitral valve regurgitation, moderate degree Tricuspid valve regurgitation, mild to moderate degree Acute kidney injury Thrombocytopenia Hematuria Elevated LFTs Alcoholism Plan/Recommendation (Dr. Pool): * Echocardiogram reveals EF 10% with severely dilated left ventricle. * Preload and afterload reduction. * Low-dose beta-dale as tolerated * Continue diuresis * Strict I&Os. Daily weight. Maintain fluid restriction * Initiate GDMT for CHF when appropriate * Hold for now given ROBERTO * Please do not administer Midodrine as this is contraindicated in patients with reduced ejection fraction * DVT/VTE prophylaxis: SCDs * Continue CORKY hose compression stockings Consider goals of care with the patient and family. There is no further inpatient cardiac workup indicated at this time. Patient to follow up with Cardiology in the outpatient setting in 1-2 weeks post discharge. Thank you for allowing us to participate in this patient's care. Please call if you have any questions or concerns. This medical document was created using an electronic medical record system with voice recognition software and computerized dictation system. Although this document has been carefully reviewed, there might still be some phonetic and typographical errors. Occasional wrong-word or ``sound-alike substitutions may have occurred due to the inherent limitations of voice recognition software. These areas are purely typographical due to imperfections of the software programs and do not reflect any compromise in the patient's medical care. Please read the chart carefully and recognize, using context, where these substitutions have occurred Plan discussed with: Patient Dietary Evaluation Review Comments: Continue current plan of care Expected Outcomes/Goals: F/U in 3-5 days Date of Service: Jan 26, 2024 Billing Provider: ELADIO POOL MD Cardiology Common Codes: 56088-[id number] INP/OBS CARE(Mod) ROSALIO SCHNEIDER SEA CAPTAIN Jan 26, 2024 14:55
== END 2024-01-26 16:55 | disposition home or self-care (01) | DRG 194 ==
LOC: ER 12:37 → EDBD 12:37 → OVERFLOW 21:12 → TELE-WESTW 01-18 05:30
PROVIDERS: ADMIT Nurse Practitioner; ATTEND Internal Medicine Geriatric Medicine
DX: I13.0 Hypertensive heart and chronic kidney disease with heart failure and stage 1 through stage 4 chronic kidney disease, or unspecified chronic kidney disease (principal); N17.0 Acute kidney failure with tubular necrosis; I21.A1 Myocardial infarction type 2; G93.41 Metabolic encephalopathy; E87.20 Acidosis, unspecified; D69.6 Thrombocytopenia, unspecified; M62.82 Rhabdomyolysis; E86.0 Dehydration; I50.23 Acute on chronic systolic (congestive) heart failure; I42.0 Dilated cardiomyopathy; D72.829 Elevated white blood cell count, unspecified; F10.20 Alcohol dependence, uncomplicated; I08.1 Rheumatic disorders of both mitral and tricuspid valves; N18.9 Chronic kidney disease, unspecified; R31.9 Hematuria, unspecified; E11.22 Type 2 diabetes mellitus with diabetic chronic kidney disease; Z59.00 Homelessness unspecified; Z79.4 Long term (current) use of insulin; Z95.810 Presence of automatic (implantable) cardiac defibrillator; Z87.891 Personal history of nicotine dependence; Y90.0 Blood alcohol level of less than 20 mg/100 ml
CPT/HCPCS: 36415; 36600; 70450; 71045; 72125; 76775; 80048; 80053; 80061; 80076; 80307; 80320; 81001; 82140; 82306; 82550; 82553; 82805; 83036; 83605; 83735; 83880; 83970; 84100; 84443; 84484; 85025; 87070; 87077; 87186; 87205; 93005; 93306; 97110; 97116; 97163; 99291; G0378; J2405